=== PATIENT | male | born 1955 | race Caucasian/White ===

== ENCOUNTER 2020-11-17 07:32 | Outpatient (CLI) | payer OTHER, SELFPAY ==
--- NOTE | 2020-11-17 07:40 | USCV_ITS ---
Endy Federico Age: 65 Gender: M : 1955 Exam Date: 11/17/2020 07:54 Ordering Phys: Gustavo Castellon DO Technologist: Sultana Valenzuela Exam Location: [facility] [place] Indication: YEARLY F/UP HISTORY: Diameter (cm) AP x Transverse x Length Velocity (cm/s) Waveform Prox Aorta: 2.64 x 2.77 x 2.62 28.40 Mid Aorta: 2.40 x 2.67 x 2.02 31.20 Distal Aorta: 1.99 x 2.23 x 1.83 29.80 Right Iliac Prox: 0.76 x x Left Iliac Prox: 0.65 x x Stent Prox Landing x x Aneurysmal Sac Max x x Lt Lat Sac Dim Rt Lat Sac Dim Stent Dist Landing x x Right Iliac Stent x x Left Iliac Stent x x Right Renal Art Left Renal Art FINDINGS: Normal abdominal aortic dimensions. The proximal common iliac artery was difficult to visualize CONCLUSIONS Normal abdominal aortic dimensions. Proximal common iliac arteries where difficult to visualize. Possibly of normal caliber Technically somewhat difficult study No similar previous studies are available for comparison Dr Anne Orantes MD [facility] (Electronically Signed) Final Date: 18 November 2020 19:13 S
== END 2020-11-17 07:33 | disposition home or self-care (01) ==
LOC: US 07:33
PROVIDERS: PCP Emergency Medicine Emergency Medical Services; Visit Provider Emergency Medicine Emergency Medical Services
DX: Z01.89 Encounter for other specified special examinations (principal)
CPT/HCPCS: 93978

== ENCOUNTER 2022-02-09 13:03 | Outpatient (CLI) | payer OTHER, SELFPAY ==
--- NOTE | 2022-02-09 13:23 | US_ITS ---
WS: [id number] RENAL ULTRASOUND HISTORY: Uncontrolled hypertension. COMPARISON: None available. TECHNIQUE: 2-D and color Doppler imaging of the kidney submitted. Right kidney: 10.4 cm x 5.3 cm x 5.8 cm. Normal echogenicity. No hydronephrosis. Exophytic cyst from the mid kidney measures 2.6 x 2.2 x 2.3 c m. No solid mass. No cortical thinning. Left kidney: 12.0 cm x 4.9 cm x 6.1 cm. Normal echogenicity with no hydronephrosis or mass. Aorta: Mild atherosclerotic disease. Urinary Bladder: Minimally distended urinary bladder. No free fluid in the pelvis. US/US renal BI* [id number] IMPRESSION: 1. No cortical thinning or atrophy of either kidney. 2. No hydronephrosis. 3. Exophytic 2.6 cm cyst RIGHT kidney.
== END 2022-02-09 13:04 | disposition home or self-care (01) ==
LOC: RAD 13:03
PROVIDERS: PCP Emergency Medicine Emergency Medical Services; Visit Provider Emergency Medicine Emergency Medical Services
DX: I10 Essential (primary) hypertension (principal); Q61.01 Congenital single renal cyst
CPT/HCPCS: 76770

== ENCOUNTER 2022-04-11 11:11 | Outpatient (CLI) | payer OTHER, SELFPAY ==
--- NOTE | 2022-04-11 11:21 | USCV_ITS ---
EndyJesus Manuel melgary Age: 66 Gender: M : 1955 Exam Date: 04/11/2022 11:56 Ordering Phys: Gustavo Castellon DO Technologist: Srini Hanson Exam Location: [facility] [place]_ Indication: hypertension Aortic Velocity @ SMA (cm/s) 59 RIGHT KIDNEY LEFT KIDNEY Velocity (cm/s) Velocity (cm/s) Sys/Beyrs Sys/Byers Resistive Index Resistive Index 100.6 / 36.7 0.64 Proximal Renal Artery 104.1 / 35.5 0.66 47.9 / 18.7 0.61 Mid Renal Artery 70.1 / 29.9 0.57 59.0 / 19.4 0.67 Distal Renal Artery 72.4 / 27.6 0.62 36.8 / 12.3 0.67 Hilar 37.3 / 15.3 0.59 25.2 / 11.4 0.55 Upper Pole 14.0 / 5.1 0.64 33.4 / 9.9 0.70 Mid Pole 21.5 / 6.7 0.69 29.2 / 10.9 0.63 Lower Pole 24.1 / 10.3 0.57 1.70 Renal Aortic Ratio 1.76 Accleration Index (cm/sec2) 198.00 Hilar 288.00 161.00 Upper Pole 131.00 187.00 Mid Pole 129.00 243.00 Lower Pole 130.00 108.1 Kidney Length (mm) 110.2 FINDINGS No comparison. No evidence of abdominal aortic aneurysm. There is no evidence of hemodynamically significant right renal artery stenosis. There is no evidence of hemodynamically significant left renal artery stenosis. Right mid renal cyst, 2.3 cm. Normal size kidneys. CONCLUSIONS No sonographic evidence of hemodynamically significant renal artery stenosis bilaterally. Dr. Glenna Gomes DO (Electronically Signed) Final Date: 11 April 2022 13:48 S
== END 2022-04-11 11:12 | disposition home or self-care (01) ==
PROVIDERS: PCP Emergency Medicine Emergency Medical Services; Visit Provider Emergency Medicine Emergency Medical Services
DX: I10 Essential (primary) hypertension (principal)
CPT/HCPCS: 93975

== ENCOUNTER 2023-12-15 07:28 | Outpatient (CLI) | payer OTHER, SELFPAY ==
--- NOTE | 2023-12-15 07:40 | USCV_ITS ---
Federico Schumacher Age: 68 Gender: M : 1955 Exam Date: 12/15/2023 08:05 Ordering Phys: Gustavo Castellon DO Technologist: GABY [place] [facility] [place]: AAA HISTORY: Diameter (cm) AP x Transverse x Length Velocity (cm/s) Waveform Prox Aorta: 2.10 x 2.30 x 47.70 Mid Aorta: 2.00 x 2.10 x 68.10 Distal Aorta: 1.70 x 2.00 x 53.40 Right Iliac Prox: 1.18 x 1.61 x 121.70 Left Iliac Prox: 0.92 x 1.40 x 80.00 Stent Prox Landing x x Aneurysmal Sac Max x x Lt Lat Sac Dim Rt Lat Sac Dim Stent Dist Landing x x Right Iliac Stent x x Left Iliac Stent x x Right Renal Art Left Renal Art FINDINGS: CONCLUSIONS No evidence of abdominal aortic or bilateral iliac aneurysm. Mild arteriovascular disease within the abdominal aorta. Juventino Zapata MD (Electronically Signed) Final Date: 15 Dec 2023 10:38 S
== END 2023-12-15 07:29 | disposition home or self-care (01) ==
LOC: RAD 07:28
PROVIDERS: PCP Emergency Medicine Emergency Medical Services; Visit Provider Emergency Medicine Emergency Medical Services
DX: Z01.89 Encounter for other specified special examinations (principal)
CPT/HCPCS: 93978

== ENCOUNTER 2024-03-06 12:48 | Inpatient (IN) | payer OTHER, SELFPAY ==
[2024-03-06] VITALS (67 sets, daily range): BP systolic 137–195; BP diastolic 97–139; PULSE 76–104; RESP 12–27; TEMP 36.5–36.7; O2SAT 90–98; BMI 35.5; BMI 34.2
--- NOTE | 2024-03-06 12:58 | ECG_ITS ---
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 Measurements Intervals [place] Rate: 97 P: 61 NC: 172 QRS: 7 QRSD: 95 T: 74 QT: 359 QTc: 458 Interpretive Statements SINUS RHYTHM POSSIBLE LEFT ATRIAL ENLARGEMENT [-0.1mV P-WAVE IN V1/V2] ANTEROSEPTAL MYOCARDIAL INFARCTION , OF INDETERMINATE AGE [40+ ms Q WAVE IN V1-V4] No previous ECG available for comparison Electronically Signed On 03-06-2024 16:11:57 CDT by Kedar Hwang M.D. [email or web address].[email or web address]/[id number] f
--- NOTE | 2024-03-06 13:01 | XR_ITS ---
WS: [id number] XR chest 1V portable [id number] REASON FOR EXAM: Shortness of breath FINDINGS: No previous examination for comparison. Moderate tortuosity and ectasia of the thoracic aorta. Moderate cardiomegaly. Opacification in the lower left hemithorax which appears to be a combination of pleural effusion and airspace consolidation/atelectasis. In the right lower lung field there are reticular interstitial opacities, groundglass opacities, and horizontal linear opacities compatible with MT B lines. XR/XR chest 1V portable [id number] IMPRESSION: The changes in the right chest are compatible with congestive heart failure. The findings in the left lower chest may be related to congestive heart failure with pleural effusion and compressive atelectasis of the left lower lung.
--- NOTE | 2024-03-06 13:03 | ED_ITS ---
HPI - SOB/Dyspnea 2 General: Chief Complaint: Shortness of Breath/Dyspnea Stated Complaint: SOB Time Seen by Provider: 03/06/24 12:58 History of Present Illness: HPI Narrative: 68-year-old man with a history of hypert ension and asthma who presents to the emergency room with shortness of breath. This been worsening for about a month. [facility]. He is not on oxygen at home but oxygen saturations are little bit low on presentation so placed on 2 L nasal cannula. No chest pain. No altered mental status. No focal motor deficits. No abdominal pain. He has not noticed any lower extremity swelling. He has had some mild cough. Review of Systems 2 Narrative: Constitutional symptoms: Negative except as documented in HPI. Skin symptoms: Negative except as documented in HPI. Eye symptoms: Negative except as documented in HPI. ENMT symptoms: Negative except as documented in HPI. Respiratory symptoms: Negative except as documented in HPI. Cardiovascular symptoms: Negative except as documented in HPI. Gastrointestinal symptoms: Negative except as documented in HPI. Genitourinary symptoms: Negative except as documented in HPI. Musculoskeletal symptoms: Negative except as documented in HPI. Neurologic symptoms: Negative except as documented in HPI. Psychiatric symptoms: Negative except as documented in HPI. Endocrine symptoms: Negative except as documented in HPI. Physical Exam 2 Narrative: EXAM NARRATIVE: General: Alert, no acute distress. Skin: Warm, dry. Head: Normocephalic, atraumatic. Neck: Supple, trachea midline. Eye: Extraocular movements are intact. Ears, nose, mouth and throat: Oral mucosa moist. Cardiovascular: Regular rate and rhythm, Normal peripheral perfusion. Respiratory: some expiratory wheeze, mild increased wob, breath sounds are equal, Symmetrical chest wall expansion. Gastrointestinal: Soft, Nontender, Non distended, Normal bowel sounds. Musculoskeletal: Normal ROM, no deformity. Neurological: Alert and oriented to person, place, time, and situation, No focal neurological deficit observed. Psychiatric: Cooperative, appropriate mood & affect. Course 2 Vital Signs: Vital signs: Vital Signs Temperature 98.0 F 03/06/24 12:56 Pulse Rate 82 03/06/24 15:40 Respiratory Rate 20 H 03/06/24 15:40 Blood Pressure 160/105 03/06/24 15:40 Pulse Oximetry 97 03/06/24 15:40 Oxygen Delivery Me thod Nasal Cannula 03/06/24 14:00 Oxygen Flow Rate 2 03/06/24 14:00 MDM - SOB/Dyspnea Medical Decision Making Differential diagnosis for patient with shortness of breath includes but is not limited to and based on the above HPI, review of systems and physical exam: Pneumonia. Bronchitis. Asthma or COPD with acute exacerbation. Acute coronary syndrome / TN. Pulmonary embolism. Anxiety. Congestive heart failure. Viral infections including influenza and Covid-19. Atrial fibrillation. Anxiety. Pleural effusion. Pneumothorax. Workup: Lab work, chest X-ray and EKG ordered to evaluate, rule in and rule out above pathologies EKG: Time 1258. Rate 97. Normal sinus rhythm, No ST-T changes, no ectopy, normal ID & QRS intervals, This was reviewed and interpreted by myself the ER physician at 1301 Repeat EKG: Time 1500. Rate 89. Normal sinus rhythm, No ST-T changes, no ectopy, normal ID & QRS intervals, This was reviewed and interpreted by myself the ER physician at 1505. No changes from previous Chest x-ray: Radiology read as compatible with heart failure. And pleural effusions. Possible compressive atelectasis. Given these findings, accelerated hypertension and elevated proBNP I did give IV Lasix Lab Review: Laboratory results were reviewed and interpreted by myself the emergency room physician. No leukocytosis. No anemia. No renal failure. BUN and creatinine are 21 and 0.8. D-dimer was elevated so a CTA was ordered. proBNP is also elevated around 5000. I reviewed the patient's medical record. Reexamination: Patient is still requiring 2 L nasal cannula. Blood pressure has improved some. Heart rate has come down from presentation. He has no altered mental status. No focal motor deficits. I discussed findings with him and his family member. Assessment and plan: Pulmonary embolism Accelerated hypertension Hypoxemia Possible congestive heart failure Lung infiltrates of unknown origin -First dose of Eliquis here in the emergency room. 80 mg IV Lasix were given as well. -Unclear etiology of the infiltrates in his lung. This will need further evaluation. -I discussed the patient with the hospitalist on-call who is admitting the patient. - Discussed findings and plan with patient. Answered any questions. - All laboratory values were reviewed and interpreted personally by myself, the ER physician - All imaging was reviewed and interpreted personally by myself, the ER physician. - Evaluation and treatment of this problem were appropriate in the emergency setting -I spent a total of >35 minutes of critical care time managing the patient, independent of any other practitioner. -The time involved in the performance of separately reportable procedures was not counted towards critical care time. Lab Data 03/06/24 13:07 03/06/24 13:07 Labs/Radiology: Radiology Impressions Chest X-Ray 03/06/24 13:01 IMPRESSION: The changes in the right chest are compatible with congestive heart failure. The findings in the left lower chest may be related to congestive heart failure with pleural effusion and compressive atelectasis of the left lower lung. Chest CTA 03/06/24 14:39 IMPRESSION: 1. Subsegmental LEFT lower lobe pulmonary emboli. 2. No central pulmonary emboli. 3. Small bilateral pleural effusions. 4. Bilateral pulmonary nodules and areas of groundglass attenuation. Some of the nodules are surrounded by groundglass attenuation. Differential includes metastatic disease, septic emboli and fungal infection. 5. Indeterminate mediastinal and hilar lymph nodes. The largest lymph node at the RIGHT hilum is 13 mm. 6. Marked enlargement of the LEFT heart chambers. Laboratory Results WBC 8.15 10^3/uL (3.29-11.43) 03/06/24 13:07 RBC 5.31 10^6/uL (3.85-5.65) 03/06/24 13:07 Hgb 15.50 g/dL (11.27-16.99) 03/06/24 13:07 Hct 48.7 % (37-53) 03/06/24 13:07 MCV 91.7 fl (82-101) 03/06/24 13:07 MCH 29.2 pg (27-33) 03/06/24 13:07 MCHC 31.8 g/dL (30-55) 03/06/24 13:07 RDW 12.8 % (12.1-15.1) 03/06/24 13:07 Plt Count 180 10^3/cmm (157-399) 03/06/24 13:07 MPV 13.2 fL (7.4-10.4) H 03/06/24 13:07 Neut % (Auto) 63.4 % 03/06/24 13:07 Lymph % (Auto) 21.6 % 03/06/24 13:07 [place] % (Auto) 6.5 % 03/06/24 13:07 Eos % (Auto) 7.2 % 03/06/24 13:07 Baso % (Auto) 1.1 % 03/06/24 13:07 Neut # (Auto) 5.16 10^3/uL (1.8-7.7) 03/06/24 13:07 Lymph # (Auto) 1.8 10^3/uL (0.8-4.8) 03/06/24 13:07 [place] # (Auto) 0.5 10^3/uL (0.2-0.9) 03/06/24 13:07 Eos # (Auto) 0.6 10^3/uL (0.0-0.8) 03/06/24 13:07 Baso # (Auto) 0.1 10^3/uL (0.0-0.1) 03/06/24 13:07 Nucleated RBC % (auto) 0 % 03/06/24 13:07 Nucleated RBCs # 0.0 /100WBC 03/06/24 13:07 D-Dimer 2.36 ug/mLFEU (0-0.59) H 03/06/24 13:07 Specimen Type Arterial 03/06/24 13:03 Sample Site Radial, left 03/06/24 13:03 ABG pH 7.39 (7.35-7.45) 03/06/24 13:03 ABG pCO2 45.2 mmHg (35-45) H 03/06/24 13:03 ABG pO2 74.9 mmHg (80.0-100.0) L 03/06/24 13:03 ABG PO2/FiO2 Ratio 267 03/06/24 13:03 ABG HCO3 27.2 mmol/L (22-26) H 03/06/24 13:03 ABG O2 Saturation 95.3 03/06/24 13:03 ABG Base Excess 1.6 mmol/L (-2.0-2.0) 03/06/24 13:03 Elmer Test Pos 03/06/24 13:03 A-a O2 Gradient 8.9 mmHg (5-10) 03/06/24 13:03 Hematocrit 46.4 % (42-52) 03/06/24 13:03 Hgb O2 Saturation 93.9 % (95-100) L 03/06/24 13:03 Carboxyhemoglobin 1.4 %THgb (0.4-20.1) 03/06/24 13:03 Methemoglobin 0.1 % (0.4-1.5) L 03/06/24 13:03 Total Hemoglobin 15.1 g/dL (14-18) 03/06/24 13:03 Sodium 142.0 mmol/L (131-143) 03/06/24 13:03 Potassium 4.0 mmol/L (3.5-5.0) 03/06/24 13:03 Glucose 107.0 mg/dL (70-115) 03/06/24 13:03 Ionized Calcium 1.2 mmol/L (1.1-1.4) 03/06/24 13:03 O2 Delivery Device Nc 03/06/24 13:03 O2 Liters/Min 2.0 % 03/06/24 13:03 FiO2 28.0 % 03/06/24 13:03 Chemical Engineering Teacher ID Cak 03/06/24 13:03 Sodium 144 mmol/L (136-145) 03/06/24 13:07 Potassium 4.0 mmol/L (3.5-5.1) 03/06/24 13:07 Chloride 105 mmol/L (98-107) 03/06/24 13:07 Carbon Dioxide 26 mmol/L (22-29) 03/06/24 13:07 Anion Gap 17.0 (5-19) 03/06/24 13:07 BUN 21 mg/dL (8-23) 03/06/24 13:07 Creatinine 0.8 mg/dL (0.7-1.2) 03/06/24 13:07 GFR Calculation 95.6 mL/min (90-130) 03/06/24 13:07 Glucose 112 mg/dL (65-115) 03/06/24 13:07 Calculated Osmolality 302 mOsm/kg (285-295) H 03/06/24 13:07 Lactic Acid 1.9 mmol/L (0.5-2.2) 03/06/24 13:07 Calcium 9.0 mg/dL (8.5-10.5) 03/06/24 13:07 Total Bilirubin 1.6 mg/dL (0.15-1.2) H 03/06/24 13:07 AST 19 U/L (0-40) 03/06/24 13:07 ALT 22 U/L (0-41) 03/06/24 13:07 Alkaline Phosphatase 71 U/L (40-130) 03/06/24 13:07 Troponin T Baseline 10 ng/L (0-15) 03/06/24 13:07 Troponin T 120 Minute 10.29 ng/L (0-15) 03/06/24 14:45 Delta Troponin T 0.29 ABS# (0-10) 03/06/24 14:45 C-Reactive Protein 3.2 mg/L (0.0-4.9) 03/06/24 13:07 NT-Pro-B Natriuret Pep 5876 pg/mL (0-125) H 03/06/24 13:07 Total Protein 7.2 g/dL (6.6-8.7) 03/06/24 13:07 Albumin 4.4 g/dL (3.5-5.2) 03/06/24 13:07 Globulin 2.8 g/dL (1.3-4.6) 03/06/24 13:07 All radiology interpretation(s) finalized by discharge Discharge Plan Discharge Patient Disposition: Admitted As Inpatient Clinical Impression: Pulmonary embolism, Hypoxemia Condition: Stable Coding Level of Care Code ED Stock Handler for Lalito Whitman
[2024-03-06 13:15] LABS: ABG PCO2 45.2 mmHg (35-45); ABG PH Result 7.39 (7.35-7.45); Alveolar-Arterial Oxygen Gradi 8.9 mmHg (5-10); Arterial Blood Gas Hematocrit 46.4 % (42-52); Base Excess ABG 1.6 mmol/L (-2.0-2.0); Blood Gas Allen Test Pos; Blood Gas Operator Identificat CAK; Blood Gas Sample Site Radial, left; Blood Gas Sample Type Arterial; Carboxyhemoglobin 1.4 %THgb (0.4-20.1); HCO3 ABG 27.2 mmol/L (22-26); HGB O2 Sat 93.9 % (95-100); Ionized Calcium Level - ABG 1.2 mmol/L (1.1-1.4); Methemoglobin 0.1 % (0.4-1.5); Oxygen Device NC; Oxygen Saturation ABG 95.3; PO2 ABG 74.9 mmHg (80.0-100.0); PO2 FiO2 Ratio Arterial Blood 267; Total Hemoglobin 15.1 g/dL (14-18)
--- NOTE | 2024-03-06 13:32 | PC.PHAR ---
[facility] IS [facility]
[2024-03-06] MEDS: albuterol 2.5 mg/3 mL Neb INHALATION (13:33)
[2024-03-06] MEDS: ipratropium-albuterol 3 mL Neb INHALATION (13:33)
[2024-03-06 13:51] LABS: Basophils # 0.1 10^3/uL (0.0-0.1); Basophils % 1.1 %; Eosinophils # 0.6 10^3/uL (0.0-0.8); Eosinophils % 7.2 %; Hematocrit 48.7 % (37-53); Lymphocytes # 1.8 10^3/uL (0.8-4.8); Lymphocytes % 21.6 %; Mean Corpuscular HGB Conc 31.8 g/dL (30-55); Mean Corpuscular Hemoglobin 29.2 pg (27-33); Mean Corpuscular Volume 91.7 fl (82-101); Mean Platelet Volume 13.2 fL (7.4-10.4); Monocytes # 0.5 10^3/uL (0.2-0.9); Monocytes % 6.5 %; Neutrophils # 5.16 10^3/uL (1.8-7.7); Neutrophils % 63.4 %; Nucleated Red Blood Cells % 0 %; Platelet Count 180 10^3/cmm (157-399); Red Blood Count 5.31 10^6/uL (3.85-5.65); Red Cell Distribution Width 12.8 % (12.1-15.1); White Blood Count 8.15 10^3/uL (3.29-11.43)
[2024-03-06 13:56] LABS: Slide Review Slide Review Perform
[2024-03-06 14:14] LABS: D Dimer 2.36 ug/mLFEU (0-0.59)
[2024-03-06 14:19] LABS: Lactic Sepsis W/Reflex 1.9 mmol/L (0.5-2.2)
[2024-03-06 14:20] LABS: Troponin(5th) Baseline 10 ng/L (0-15)
[2024-03-06 14:25] LABS: Alanine Aminotransferase 22 U/L (0-41); Albumin Level 4.4 g/dL (3.5-5.2); Alkaline Phosphatase 71 U/L (40-130); Aspartate Amino Transferase 19 U/L (0-40); Blood Urea Nitrogen 21 mg/dL (8-23); C Reactive Protein 3.2 mg/L (0.0-4.9); Carbon Dioxide 26 mmol/L (22-29); Chloride 105 mmol/L (98-107); Creatinine Clr Calc Pharmacy 114.3533; Globulin 2.8 g/dL (1.3-4.6); Glomerular Filtration Rate 95.6 mL/min (90-130); Glucose 112 mg/dL (65-115); NT Pro B Type Natriuretic Pept 5876 pg/mL (0-125); Osmolality Calculated 302 mOsm/kg (285-295); Sodium 144 mmol/L (136-145); Total Bilirubin 1.6 mg/dL (0.15-1.2); Total Protein 7.2 g/dL (6.6-8.7)
--- NOTE | 2024-03-06 14:39 | CT_ITS ---
WS: [id number] CT CHEST ANGIOGRAPHY WITH REFORMATS HISTORY: hypoxemia, tachycardia TECHNIQUE: Contiguous axial images are obtained through the chest during arterial injection of intrav enous contrast. Images are reconstructed to evaluate the pulmonary arteries. MIP imaging also reviewe d. All CT scans at [facility] use at least one of these dose optimization techniques: automat ed exposure control; mA and/or kV adjustment per patient size (includes targeted exams where dose is matched to clinical indication); or iterative reconstruction. CONTRAST: Omnipaque 350; 100 mL IV. DLP: 487.09 mGy.cm COMPARISON: None available. Good opacification of the pulmonary arteries. Centrally there is no pulmonary embolism. Within the se gmental and subsegmental branches of the LEFT lower lobe the opacification of the arteries becomes le ss robust. There does appear to be a few small filling defects very distally. No additional emboli id entified. Normal sized thoracic aorta with atherosclerosis. No RIGHT heart strain. There is moderate LEFT heart enlargement. Small bilateral pleural effusions. Hazy attenuation throughout both lungs. There are additional bilat eral pulmonary nodules and areas of groundglass attenuation. Nodules and areas of groundglass attenua tion are bilateral. The largest solid nodule measures 9 mm in the LEFT lower lobe. There is mild grou ndglass attenuation surrounding some of these nodules. Mildly prominent lymph nodes. Largest lymph node RIGHT hilum 1.3 cm. Tricuspid regurgitation into the hepatic veins. Mild thoracic spondylosis. CT/CT angio chest PE protcl [id number] IMPRESSION: 1. Subsegmental LEFT lower lobe pulmonary emboli. 2. No central pulmonary emboli. 3. Small bilateral pleural effusions. 4. Bilateral pulmonary nodules and areas of groundglass attenuation. Some of t he nodules are surrounded by groundglass attenuation. Differential includes met astatic disease, septic emboli and fungal infection. 5. Indeterminate mediastinal and hilar lymph nodes. The largest lymph node at the RIGHT hilum is 13 mm. 6. Marked enlargement of the LEFT heart chambers.
[2024-03-06] MEDS: iohexol 350 mg/mL 500 mL Btl (per mL) IV (14:52)
--- NOTE | 2024-03-06 15:02 | ECG_ITS ---
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 Measurements Intervals [place] Rate: 89 P: 59 OR: 160 QRS: 6 QRSD: 105 T: 81 QT: 403 QTc: 491 Interpretive Statements SINUS RHYTHM POSSIBLE ANTERIOR MYOCARDIAL INFARCTION , OF INDETERMINATE AGE [30 ms Q WAVE IN V3/V4, OR R < 0.2 mV IN V4] Compared to ECG 03/06/2024 12:58:21 No significant changes Electronically Signed On 03-06-2024 16:12:44 CDT by Kedar Hwang M.D. [email or web address] [email or web address].[employer]/store/OM/[id number]
[2024-03-06 15:06] LABS: Troponin 5 2HR 10.29 ng/L (0-15); Troponin 5 2HR Delta 0.29 ABS# (0-10)
[2024-03-06] MEDS: FUROsemide 10 mg/mL SDV 10mL 80 MG IVP (15:20)
--- NOTE | 2024-03-06 16:03 | P.HP_ITS ---
Providers/Chief Complaint 2 Primary Care Provider: Veronica Bynum MD Chief Complaint: SOB History of Present Illness Federico Schumacher is a 68 year old male who presented from the [facility] for shortness of breath and hypoxia. Patient is stating that he has history of diabetes, hypertension, 2 heart attacks in the past 20 years ago but never had a stent or bypass. Does not use oxygen at baseline, lives with his niece. He has been experiencing orthopnea PND shortness of breath for last 1 month. He has not noticed any chest pain fever nausea vomiting or diarrhea. He has been noticing weight gain and lower extremity swelling. In the ER he has been diagnosed with acute onset PE, CHF and hypertensive emergency. He has been given Lasix, high BNP consistent with congestive heart failure. He is requiring 2 L of oxygen Patient is DNR/DNI Patient chews tobacco, no significant past surgical history other than knee surgery Review of Systems 2 Eyes: Denies: change in vision ENMT: Denies: throat pain Card: Denies: chest pain Resp: Reports: dyspnea GI: Denies: abdominal pain : Denies: flank pain Medications/Allergies Home Medications Medication Instructions Recorded Confirmed Last Taken Type aspirin 81 mg tablet,delayed 81 mg PO DAILY 03/06/24 03/06/24 03/06/24 History release cholecalciferol (vitamin D3) 50 50 mcg PO DAILY 03/06/24 03/06/24 03/06/24 History mcg (2,000 unit) tablet (Vitamin D3) metoprolol succinate 100 mg 50 mg PO DAILY 03/06/24 03/06/24 03/06/24 History tablet,extended release 24 hr potassium citrate 99 mg capsule 99 mg PO DAILY 03/06/24 03/06/24 03/06/24 History Allergies Allergy/AdvReac Type Severity Reaction Status Date / Time pravastatin Allergy Unknown Unknown Verified 03/06/24 13:34 Penicillins Allergy Unknown Verified 03/06/24 13:01 PFSH Acute 2 PFSH: Medical History Myocardial infarction Diabetes Surgical History H/O knee surgery Vitals/I&O/Wt Last Vital Signs Temp 98.0 F 03/06/24 12:56 Pulse 82 03/06/24 15:40 Resp 20 H 03/06/24 15:40 BP 160/105 03/06/24 15:40 Pulse Ox 97 03/06/24 15:40 O2 Del Method Nasal Cannula 03/06/24 14:00 O2 Flow Rate 2 03/06/24 14:00 Weight last 48 hrs Weight 118.841 kg Physical Exam 2 Narrative: Awake and alert Currently on 2 L Active crackles Lower extremity edema Active signs of heart failure GCS 15 S1, S2 Hypertensive Present Carpi Nonfocal neuroexam Data 03/06/24 13:07 03/06/24 13:07 A&P Assessment and plan (1) Pulmonary embolism: (2) Hypoxemia: (3) New onset of congestive heart failure: (4) Hypertensive urgency: Plan New onset CHF Requested echo Start Lasix Patient notes a history of myocardial infarction 20 years ago no history of stent or CABG Acute PE Check respiratory panel Rule out COVID Start therapeutic Lovenox Hypertensive urgency will use IV hydralazine on as needed basis I will add lisinopril along Lasix Also add isosorbide mononitrate Acute hypoxia related to CHF Groundglass opacity pulmonary nodule Anticipate improvement with diuresis This is related to CHF DNR/DNI discussed with the patient in the ER Cardiac diet Patient is also diabetic will use insulin sliding scale Attestations 2 Medical Necessity Statement*: More than 2 midnights anticipated Diagnoses Pulmonary embolism I26.99 Hypoxemia R09.02 New onset of congestive heart failure I50.9 Hypertensive urgency I16.0
[2024-03-06] MEDS: apixaban 5 mg Tablet 10 MG PO (16:15)
[2024-03-06 16:50] LABS: Procalcitonin 0.03 ng/mL (0-0.5)
[2024-03-06] MEDS: hyDRALAzine 20 mg/mL INJ 1 mL 5 MG IVP (16:53)
[2024-03-06 17:15] LABS: Estmated Average Glucose 111; Hemoglobin A1C 5.5 % (4.0-6.0)
[2024-03-06 18:25] LABS: Adenovirus Not Detected (NOT DETECT); Chlamydia Pneumoniae Not Detected (NOT DETECT); Coronavirus 229E,HKU1,NL63,OC4 Not Detected (NOT DETECT); Human Metapneumovirus Not Detected (NOT DETECT); Human Rhinovirus/Enterovirus Not Detected (NOT DETECT); Influenza A Not Detected (NOT DETECT); Influenza A H1 Not Detected (NOT DETECT); Influenza A H1-2009 Not Detected (NOT DETECT); Influenza A H3 Not Detected (NOT DETECT); Influenza B Not Detected (NOT DETECT); Mycoplasma Pneumoniae Not Detected (NOT DETECT); Parainfluenza Virus Type 1 Not Detected (NOT DETECT); Parainfluenza Virus Type 2 Not Detected (NOT DETECT); Parainfluenza Virus Type 3 Not Detected (NOT DETECT); Parainfluenza Virus Type 4 Not Detected (NOT DETECT); Respiratory Syncytial Virus A Not Detected (NOT DETECT); Respiratory Syncytial Virus B Not Detected (NOT DETECT); SARS-COV-2 Not Detected (NOT DETECT)
--- NOTE | 2024-03-06 19:02 | ECG_ITS ---
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 Measurements Intervals [place] Rate: 85 P: 52 DE: 150 QRS: 6 QRSD: 106 T: 75 QT: 395 QTc: 470 Interpretive Statements SINUS RHYTHM POSSIBLE LEFT ATRIAL ENLARGEMENT [-0.1mV P-WAVE IN V1/V2] NONSPECIFIC T-WAVE ABNORMALITY Compared to ECG 03/06/2024 15:00:55 T-wave abnormality now present Myocardial infarct finding no longer present Electronically Signed On 03-07-2024 10:00:32 CDT by Kedar Hwang M.D. [email or web address] DoodleSequoia Pharmaceuticalsmun[facility].[place]/store/OM/[id number]
[2024-03-06 19:10] LABS: Troponin 5 6HR 10.48 ng/L (0-15); Troponin 5 6HR Delta 0.48 ng/L (0-12)
--- NOTE | 2024-03-06 19:19 | USCV_ITS ---
Federico Schumacher Age: 68 Gender: M : 1955 Exam Date: 03/06/2024 21:33 Ordering Phys: Hudson Dias MD Technologist: NARDA [place] [facility] [place]: CHF, HTN, history of asthma BP: 171 / 123 HR: 81 Rhythm: Atrial fibrillation Technical Quality: Adequate MEASUREMENTS (Male / Female) Normal Values 2D ECHO LV Diastolic Diameter PLAX 5.9 cm 4.2 - 5.9 / 3.9 - 5.3 cm IVS Diastolic Thickness 1.4 cm 0.6 - 1.0 / 0.6 - 0.9 cm IVS Systolic Thickness 1.6 cm LVPW Diastolic Thickness 1.4 cm 0.6 - 1.0 / 0.6 - 0.9 cm LVPW Systolic Thickness 2.0 cm LVOT Diameter 2.5 cm LV Ejection Fraction 2D Teich 20.6 % LV Ejection Fraction MOD 4C 11.8 % LV Ejection Fraction MOD 2C 28.7 % LV Ejection Fraction 2C AL 29.6 % LA Diameter 6.0 cm Aorta at Sinotubular Diameter 2.9 cm IVC Diameter 0.7 cm M-MODE LA Ao Ratio MM 1.5 AV Cusp Separation MM 2.2 cm DOPPLER AV Peak Velocity 140.0 cm/s LVOT Peak Velocity 61.0 cm/s AV Area Cont Eq vti 2.5 cm squared AV Area Cont Eq pk 2.1 cm squared MV Peak Velocity 128.0 cm/s MV Area PHT 4.4 cm squared Mitral E to A Ratio 366.0 TR Peak Velocity 265.0 cm/s TR Peak Gradient 28.1 mmHg TV Peak E Velocity 47.0 cm/s Right Atrial Pressure 3.0 mmHg Pulmonary Artery Systolic Pressu 31.1 mmHg PV Peak Velocity 85.0 cm/s FINDINGS Left Ventricle Left ventricle is dilated. LV systolic function is severely reduced with EF of 15-20%. Severe global hypokinesis. Right Ventricle Normal in size and function Right Atrium Normal in size. Likely interatrial shunting. Left Atrium Severely dilated Mitral Valve Mitral valve is thickened. Mild to moderate mitral regurgitation. Aortic Valve Aortic valve is thickened. No significant stenosis or regurgitation. Tricuspid Valve Mild tricuspid regurgitation. Pulmonary artery systolic pressure is normal. Pulmonic Valve Not well visualized Pericardium Pleural effusion is seen. Aorta Normal in size IVC Grossly normal CONCLUSIONS Left ventricle is dilated. LV systolic function is severely reduced with EF of 15 to 20%. Possible interatrial shunting seen. Severely dilated left atrium. Mild to moderate mitral regurgitation. Mild tricuspid regurgitation. Pleural effusion is seen. No comparison studies are available. Kedar Hwang MD (Electronically Signed) Final Date: 07 March 2024 09:55 S
[2024-03-06 19:59] LABS: Glucose Point of Care 92 mg/dL (70-110)
[2024-03-06] MEDS: cefTRIAXone 1,000 mg SDV 1000 MG IVP (20:11)
[2024-03-06] MEDS: FUROsemide 10 mg/mL SDV 10mL 40 MG IVP (20:11)
[2024-03-06] MEDS: doxycycline 100 mg Tablet PO (20:11)
[2024-03-06 20:37] LABS: Thyroid Stimulating Hormone 3.67 uIU/mL (0.27-4.20); Vitamin B12 435 pg/mL (232-1245)
[2024-03-07] VITALS (8 sets, daily range): BP systolic 141–169; BP diastolic 74–110; PULSE 56–93; RESP 15–19; TEMP 36.4–37; O2SAT 94–98
[2024-03-07] MEDS: hyDRALAzine 20 mg/mL INJ 1 mL 5 MG IVP (01:42)
[2024-03-07] MEDS: enoxaparin 120 mg/0.8 mL Syringe SUBCUT ×2 (03:07→17:05)
[2024-03-07] MEDS: FUROsemide 10 mg/mL SDV 10mL 40 MG IVP ×2 (05:57→19:28)
[2024-03-07 06:34] LABS: Glucose Point of Care 119 mg/dL (70-110)
[2024-03-07 06:39] LABS: Basophils # 0.1 10^3/uL (0.0-0.1); Basophils % 0.7 %; Eosinophils # 0.7 10^3/uL (0.0-0.8); Eosinophils % 5.8 %; Lymphocytes % 8.8 %; Mean Corpuscular HGB Conc 32.6 g/dL (30-55); Mean Corpuscular Hemoglobin 29.5 pg (27-33); Mean Corpuscular Volume 90.6 fl (82-101); Mean Platelet Volume 12.7 fL (7.4-10.4); Monocytes # 0.9 10^3/uL (0.2-0.9); Monocytes % 7.4 %; Neutrophils # 9.02 10^3/uL (1.8-7.7); Neutrophils % 76.8 %; Nucleated Red Blood Cells % 0 %; Platelet Count 162 10^3/cmm (157-399); Red Blood Count 5.08 10^6/uL (3.85-5.65); Red Cell Distribution Width 12.7 % (12.1-15.1); White Blood Count 11.74 10^3/uL (3.29-11.43)
[2024-03-07 07:01] LABS: Anion Gap 15.6 (5-19); Blood Urea Nitrogen 18 mg/dL (8-23); C Reactive Protein 7.4 mg/L (0.0-4.9); Carbon Dioxide 28 mmol/L (22-29); Chloride 101 mmol/L (98-107); Glomerular Filtration Rate 95.6 mL/min (90-130); Glucose 122 mg/dL (65-115); Magnesium 1.9 mg/dL (1.7-2.3); Osmolality Calculated 295 mOsm/kg (285-295); Phosphorus 3.3 mg/dL (2.5-4.5); Potassium 3.6 mmol/L (3.5-5.1); Sodium 141 mmol/L (136-145)
--- NOTE | 2024-03-07 08:12 | USCV_ITS ---
Federico Schumacher Age: 68 Gender: M : 1955 Exam Date: 03/07/2024 10:11 Ordering Phys: Hudson Dias MD Technologist: GABY [place] [facility] [place]: LE SWELLING HISTORY: Lower extremity swelling. PROCEDURES: Venous duplex imaging was performed in bilateral lower extremities. The following venous structures were evaluated: common femoral vein, profunda vein, proximal portion of the greater saphenous vein, superficial femoral vein, and the popliteal vein. In addition, the posterior tibial and peroneal trunk were evaluated. Serial compression, augmentation maneuvers, and spectral Doppler flow evaluation were performed. . FINDINGS: No DVT seen, limited quality exam. CONCLUSIONS No DVT bilateral lower extremities. Poor quality exam. It would be difficult to exclude DVT on this exam. The veins and color doppler evaluation is very limited. Dr. Glenna Gomes DO (Electronically Signed) Final Date: 07 March 2024 10:57 S
--- NOTE | 2024-03-07 09:15 | P.PN_ITS ---
Subjective 2 Subjective: Patient is endorsing feeling better Adequate diuresis Echo report is pending Respiratory panel is negative TSH normal B12 400 Patient is currently on 2 L nasal cannula No active chest pain Vitals/I&O/Wt Last Vital Signs Temp 98.2 F 03/07/24 08:00 Pulse 93 03/07/24 08:00 Resp 18 03/07/24 08:00 BP 141/86 03/07/24 08:00 Pulse Ox 95 03/07/24 08:00 O2 Del Method Nasal Cannula 03/07/24 08:00 O2 Flow Rate 2.5 03/07/24 07:32 03/06/24 03/07/24 03/07/24 22:59 06:59 14:59 Intake Total 120 / 120 240 / 240 Output Total 1800 / 1800 600 / 2400 1300 / 1300 Balance -1800 / -1800 -480 / -2280 -1060 / -1060 Weight last 48 hrs Weight 114.759 kg Weight 114.305 kg Weight 118.841 kg Physical Exam 2 Narrative: Patient ate his breakfast Low extremity swelling still present Foul-smelling wound Patient is pleasant cooperative No acute chest pain Currently 2 L No orthopnea PND No significant crackles noted on auscultation S1, S2 Urinary Catheter Management: Engel: Cath Placed During This Visit: yes Reason for Continuing Indwelling Catheter: Other Urinary Catheter Date of Insertion: 03/06/24 Urinary Catheter Time of Insertion: 20:29 Data 03/07/24 06:22 03/07/24 06:22 A&P Assessment and plan (1) Hypertensive urgency: (2) New onset of congestive heart failure: (3) Pulmonary embolism: (4) Hypoxemia: Plan New onset CHF Echo report is pending Adequate diuresis Continue on diuresis IV Acute PE patient will need Eliquis at the time of discharge Currently on therapeutic Lovenox Lower extremity swelling will request venous Doppler Hypertensive urgency added lisinopril along with Lasix and hydralazine will need to optimize medications before discharge Plan to discharge him by tomorrow if echo showed preserved ejection fraction, Acute hypoxia related to CHF will need home O2 eval before discharge Cardiac diet Attestations 2 Medical Necessity Statement*: Plan to discharge him by tomorrow Diagnoses Hypertensive urgency I16.0 New onset of congestive heart failure I50.9 Pulmonary embolism I26.99 Hypoxemia R09.02
[2024-03-07] MEDS: sennosides-docusate Tablet 1 TAB PO (09:18)
[2024-03-07] MEDS: doxycycline 100 mg Tablet PO ×2 (09:18→17:05)
--- NOTE | 2024-03-07 09:38 | PC.CHAP ---
Pastoral Care Encounter/Spiritual Assessment Type of Contact [] Declined motor assembler visit [] Patient/Family/Request visit [] Outpatient visit [] Follow-up visit [] Physician referral [] Code/Alert [x] Routine visit [] Staff referral [] Actively dying [] Patient sleeping [] Family support [] [] Out of room [] Palliative care [] [] Receiving care in room [] Pre-surgical visit [] Trauma [] Long length of stay [] ICU visit [] Other: Relational/Emotional Strength [x] Patient feels connected with others/family/visitors/staff [] Distress [] Loneliness/isolation [] Abandonment Spirituality of Patient [x] Person of Vicki [] Attends Uatsdin of their Vicki [x] Believes in Prayer [] Reads Bible or Jain materials [] There are Spiritual issues to be addressed [employer] Administrator Interventions [x] Prayer [x] Active listening [] Non-anxious presence [x] Spiritual/emotional support [] Crisis/trauma care [] Spiritual counseling [] Bereavement support [] Provided bereavement packet [] Provided Bible/devotional materials [] Provided toy/stuffed animal, coloring book to patient or family member [] Provided Communion [] Anointing/[place] [] Salvation [x] Completed spiritual assessment [] Other: Impact on Illness or Injury [] Angry [] Fearful [] Anxious [] Often cries [] Exhaustion [] Unable to work [] Unable to attend christian [] Unable to walk/stand [] Unable to read [] Unable to drive [] Unable to eat/drink [] Unable to sleep [] Unable to be with family [] Patient intubated [] Other: Summary Time spent with patient 5 min Pastoral Care Encounter/Spiritual Assessment Type of Contact [] Declined motor assembler visit [] Patient/Family/Request visit [] Outpatient visit [] Follow-up visit [] Physician referral [] Code/Alert [] Routine visit [] Staff referral [] Actively dying [] Patient sleeping [] Family support [] [] Out of room [] Palliative care [] [] Receiving care in room [] Pre-surgical visit [] Trauma [] Long length of stay [] ICU visit [] Other: Relational/Emotional Strength [] Patient feels connected with others/family/visitors/staff [] Distress [] Loneliness/isolation [] Abandonment Spirituality of Patient [] Person of Vicki [] Attends Uatsdin of their Vicki [] Believes in Prayer [] Reads Bible or Jain materials [] There are Spiritual issues to be addressed [employer] Administrator Interventions [] Prayer [] Active listening [] Non-anxious presence [] Spiritual/emotional support [] Crisis/trauma care [] Spiritual counseling [] Bereavement support [] Provided bereavement packet [] Provided Bible/devotional materials [] Provided toy/stuffed animal, coloring book to patient or family member [] Provided Communion [] Anointing/[place] [] Salvation [] Completed spiritual assessment [] Other: Impact on Illness or Injury [] Angry [] Fearful [] Anxious [] Often cries [] Exhaustion [] Unable to work [] Unable to attend christian [] Unable to walk/stand [] Unable to read [] Unable to drive [] Unable to eat/drink [] Unable to sleep [] Unable to be with family [] Patient intubated [] Other: Summary Time spent with patient
[2024-03-07 11:23] LABS: Glucose Point of Care 98 mg/dL (70-110)
[2024-03-07 17:30] LABS: Glucose Point of Care 156 mg/dL (70-110)
[2024-03-07] MEDS: insulin lispro 100 unit/1 mL SUBCUT (17:46)
[2024-03-07 20:52] LABS: Glucose Point of Care 95 mg/dL (70-110)
[2024-03-07] MEDS: cefTRIAXone 1,000 mg SDV 1000 MG IVP (21:22)
[2024-03-08] MEDS: enoxaparin 120 mg/0.8 mL Syringe SUBCUT (03:35)
[2024-03-08 04:00] VITALS: BP 162/82; PULSE 73; RESP 16; TEMP 36.7; O2SAT 94
[2024-03-08 04:47] LABS: Basophils # 0.1 10^3/uL (0.0-0.1); Eosinophils % 8.9 %; Hematocrit 43.1 % (37-53); Lymphocytes # 2.2 10^3/uL (0.8-4.8); Lymphocytes % 19.5 %; Mean Corpuscular HGB Conc 32.3 g/dL (30-55); Mean Corpuscular Hemoglobin 29.2 pg (27-33); Mean Corpuscular Volume 90.5 fl (82-101); Mean Platelet Volume 12.7 fL (7.4-10.4); Monocytes % 8.9 %; Neutrophils # 6.95 10^3/uL (1.8-7.7); Neutrophils % 61.3 %; Nucleated Red Blood Cells % 0 %; Platelet Count 158 10^3/cmm (157-399); Red Blood Count 4.76 10^6/uL (3.85-5.65); Red Cell Distribution Width 12.7 % (12.1-15.1); White Blood Count 11.33 10^3/uL (3.29-11.43)
[2024-03-08 05:06] LABS: Anion Gap 15.3 (5-19); Blood Urea Nitrogen 17 mg/dL (8-23); Calcium 8.8 mg/dL (8.5-10.5); Carbon Dioxide 29 mmol/L (22-29); Chloride 99 mmol/L (98-107); Glomerular Filtration Rate 111.5 mL/min (90-130); Glucose 97 mg/dL (65-115); Osmolality Calculated 291 mOsm/kg (285-295); Potassium 3.3 mmol/L (3.5-5.1); Sodium 140 mmol/L (136-145)
[2024-03-08] MEDS: FUROsemide 10 mg/mL SDV 10mL 40 MG IVP (06:25)
[2024-03-08 06:26] LABS: Glucose Point of Care 90 mg/dL (70-110)
[2024-03-08 07:29] VITALS: BP 150/97; PULSE 92; RESP 20; TEMP 36.3; O2SAT 95
[2024-03-08 07:53] VITALS: PULSE 51; RESP 18; O2SAT 94
--- NOTE | 2024-03-08 09:09 | PC.SOCIAL ---
IMM Updated Updated pt on IMM. No questions voiced. Provided pt a copy. Initialed, dated, & timed a copy & placed in chart.
[2024-03-08] MEDS: lisinopril 20 mg Tablet PO (09:12)
[2024-03-08] MEDS: doxycycline 100 mg Tablet PO (09:12)
[2024-03-08] MEDS: potassium chloride ER 20 mEq Tablet 40 MEQ PO (09:29)
[2024-03-08 09:41] VITALS: O2SAT 93; O2SAT 95
--- NOTE | 2024-03-08 10:18 | PM.DCS ---
Discharge Providers Date of Admission: 03/06/24 18:35 Date of Discharge: March 08, 2024 Attending Provider at Admission: Hudson Dias MD Attending Provider at Discharge: Hudson Dias MD Primary Care Provider: Veronica Bynum MD Diagnoses at Discharge Discharge Diagnosis (1) Hypertensive urgency: Status: Acute (2) New onset of congestive heart failure: Status: Acute (3) Pulmonary embolism: Status: Acute (4) Hypoxemia: Status: Acute Reason for Visit Reason for Visit: SOB Hospital Course Hospital Course 68-year-old male who present to the hospital with chief complaint of shortness of breath orthopnea and PND which has been going on for a month, he did not experience any chest pain, stating that he had 2 heart attacks 20 years ago but no stents or CABG, he was diagnosed with hypertensive urgency, troponins were flat, echo was requested which showed EF 15%, patient was diuresed aggressively for acute onset CHF with adequate diuresis, patient is still has slight hypervolemic state, we were able to wean him off oxygen 2 L up to room air at the time of discharge, his electrolytes were replenished, LifeVest has been arranged, patient will follow-up with cardiology outpatient for an elective angiogram. At the time of discharge patient will get lisinopril which may be transition to Entresto outpatient, he will get Coreg with instructions to hold if heart rate is below 60, get hydralazine along lisinopril for blood pressure, Lasix along potassium and magnesium supplementation. Patient chews tobacco. He is being discharged with stable hemodynamics. Physical Exam Narrative: Awake and alert Pleasant cooperative Lower extremity swelling improving edema 2+ S1, S2 Currently on room air Hypertensive Urinary Catheter Management: Engel: Cath Placed During This Visit: yes Reason for Continuing Indwelling Catheter: Other Urinary Catheter Date of Insertion: 03/06/24 Urinary Catheter Time of Insertion: 20:29 Discharge Data Studies Completed and Pending Completed Studies During Hospitalization Category Date Time Status CT angio chest PE protcl [id number] Stat Cat Scan 03/06/24 14:39 Completed XR chest 1V portable [id number] Stat Exams 03/06/24 13:01 [place] [id number] Routine Ultrasound 03/07/24 08:12 Completed CV. echo complete* [id number] Routine Ultrasound 03/06/24 19:19 Completed Radiology Impressions Chest X-Ray 03/06/24 13:01 IMPRESSION: The changes in the right chest are compatible with congestive heart failure. The findings in the left lower chest may be related to congestive heart failure with pleural effusion and compressive atelectasis of the left lower lung. Chest CTA 03/06/24 14:39 IMPRESSION: 1. Subsegmental LEFT lower lobe pulmonary emboli. 2. No central pulmonary emboli. 3. Small bilateral pleural effusions. 4. Bilateral pulmonary nodules and areas of groundglass attenuation. Some of the nodules are surrounded by groundglass attenuation. Differential includes metastatic disease, septic emboli and fungal infection. 5. Indeterminate mediastinal and hilar lymph nodes. The largest lymph node at the RIGHT hilum is 13 mm. 6. Marked enlargement of the LEFT heart chambers. Laboratory Results WBC 11.33 10^3/uL (3.29-11.43) 03/08/24 04:37 RBC 4.76 10^6/uL (3.85-5.65) 03/08/24 04:37 Hgb 13.90 g/dL (11.27-16.99) 03/08/24 04:37 Hct 43.1 % (37-53) 03/08/24 04:37 MCV 90.5 fl (82-101) 03/08/24 04:37 MCH 29.2 pg (27-33) 03/08/24 04:37 MCHC 32.3 g/dL (30-55) 03/08/24 04:37 RDW 12.7 % (12.1-15.1) 03/08/24 04:37 Plt Count 158 10^3/cmm (157-399) 03/08/24 04:37 MPV 12.7 fL (7.4-10.4) H 03/08/24 04:37 Neut % (Auto) 61.3 % 03/08/24 04:37 Lymph % (Auto) 19.5 % 03/08/24 04:37 [place] % (Auto) 8.9 % 03/08/24 04:37 Eos % (Auto) 8.9 % 03/08/24 04:37 Baso % (Auto) 1.0 % 03/08/24 04:37 Neut # (Auto) 6.95 10^3/uL (1.8-7.7) 03/08/24 04:37 Lymph # (Auto) 2.2 10^3/uL (0.8-4.8) 03/08/24 04:37 [place] # (Auto) 1.0 10^3/uL (0.2-0.9) H 03/08/24 04:37 Eos # (Auto) 1.0 10^3/uL (0.0-0.8) H 03/08/24 04:37 Baso # (Auto) 0.1 10^3/uL (0.0-0.1) 03/08/24 04:37 Nucleated RBC % (auto) 0 % 03/08/24 04:37 Nucleated RBCs # 0.0 /100WBC 03/08/24 04:37 D-Dimer 2.36 ug/mLFEU (0-0.59) H 03/06/24 13:07 Specimen Type Arterial 03/06/24 13:03 Sample Site Radial, left 03/06/24 13:03 ABG pH 7.39 (7.35-7.45) 03/06/24 13:03 ABG pCO2 45.2 mmHg (35-45) H 03/06/24 13:03 ABG pO2 74.9 mmHg (80.0-100.0) L 03/06/24 13:03 ABG PO2/FiO2 Ratio 267 03/06/24 13:03 ABG HCO3 27.2 mmol/L (22-26) H 03/06/24 13:03 ABG O2 Saturation 95.3 03/06/24 13:03 ABG Base Excess 1.6 mmol/L (-2.0-2.0) 03/06/24 13:03 Elmer Test Pos 03/06/24 13:03 A-a O2 Gradient 8.9 mmHg (5-10) 03/06/24 13:03 Hematocrit 46.4 % (42-52) 03/06/24 13:03 Hgb O2 Saturation 93.9 % (95-100) L 03/06/24 13:03 Carboxyhemoglobin 1.4 %THgb (0.4-20.1) 03/06/24 13:03 Methemoglobin 0.1 % (0.4-1.5) L 03/06/24 13:03 Total Hemoglobin 15.1 g/dL (14-18) 03/06/24 13:03 Sodium 142.0 mmol/L (131-143) 03/06/24 13:03 Potassium 4.0 mmol/L (3.5-5.0) 03/06/24 13:03 Glucose 107.0 mg/dL (70-115) 03/06/24 13:03 Ionized Calcium 1.2 mmol/L (1.1-1.4) 03/06/24 13:03 O2 Delivery Device Nc 03/06/24 13:03 O2 Liters/Min 2.0 % 03/06/24 13:03 FiO2 28.0 % 03/06/24 13:03 Fish Hatchery Superintendent ID Cak 03/06/24 13:03 Sodium 140 mmol/L (136-145) 03/08/24 04:37 Potassium 3.3 mmol/L (3.5-5.1) L 03/08/24 04:37 Chloride 99 mmol/L (98-107) 03/08/24 04:37 Carbon Dioxide 29 mmol/L (22-29) 03/08/24 04:37 Anion Gap 15.3 (5-19) 03/08/24 04:37 BUN 17 mg/dL (8-23) 03/08/24 04:37 Creatinine 0.7 mg/dL (0.7-1.2) 03/08/24 04:37 GFR Calculation 111.5 mL/min (90-130) 03/08/24 04:37 Glucose 97 mg/dL (65-115) 03/08/24 04:37 POC Glucose 90 mg/dL (70-110) 03/08/24 06:19 Estimat Average Glucose 111 03/06/24 13:07 Hemoglobin A1c 5.5 % (4.0-6.0) 03/06/24 13:07 Calculated Osmolality 291 mOsm/kg (285-295) 03/08/24 04:37 Lactic Acid 1.9 mmol/L (0.5-2.2) 03/06/24 13:07 Calcium 8.8 mg/dL (8.5-10.5) 03/08/24 04:37 Phosphorus 3.3 mg/dL (2.5-4.5) 03/07/24 06:22 Magnesium 1.9 mg/dL (1.7-2.3) 03/07/24 06:22 Total Bilirubin 1.6 mg/dL (0.15-1.2) H 03/06/24 13:07 AST 19 U/L (0-40) 03/06/24 13:07 ALT 22 U/L (0-41) 03/06/24 13:07 Alkaline Phosphatase 71 U/L (40-130) 03/06/24 13:07 Troponin T Baseline 10 ng/L (0-15) 03/06/24 13:07 Troponin T 120 Minute 10.29 ng/L (0-15) 03/06/24 14:45 Delta Troponin T 0.29 ABS# (0-10) 03/06/24 14:45 Troponin T Hi Sens 6Hr 10.48 ng/L (0-15) 03/06/24 18:46 Troponin T Hi Sens 6Hr Delta 0.48 ng/L (0-12) 03/06/24 18:46 C-Reactive Protein 7.4 mg/L (0.0-4.9) H 03/07/24 06:22 NT-Pro-B Natriuret Pep 5876 pg/mL (0-125) H 03/06/24 13:07 Total Protein 7.2 g/dL (6.6-8.7) 03/06/24 13:07 Albumin 4.4 g/dL (3.5-5.2) 03/06/24 13:07 Globulin 2.8 g/dL (1.3-4.6) 03/06/24 13:07 Vitamin B12 435 pg/mL (232-1245) 03/06/24 18:46 Procalcitonin 0.03 ng/mL (0-0.5) 03/06/24 13:07 TSH 3.67 uIU/mL (0.27-4.20) 03/06/24 18:46 Adenovirus (PCR) Not detected (NOT DETECT) 03/06/24 16:26 C. pneumoniae DNA (PCR) Not detected (NOT DETECT) 03/06/24 16:26 Coronavirus 229E (PCR) Not detected (NOT DETECT) 03/06/24 16:26 Human Metapneumovir PCR Not detected (NOT DETECT) 03/06/24 16:26 Influenza A (H1) PCR Not detected (NOT DETECT) 03/06/24 16:26 Influ A (H1/09) PCR Not detected (NOT DETECT) 03/06/24 16:26 Influenza A (H3) PCR Not detected (NOT DETECT) 03/06/24 16:26 Influenza Type A (PCR) Not detected (NOT DETECT) 03/06/24 16:26 Influenza Type B (PCR) Not detected (NOT DETECT) 03/06/24 16:26 M. pneumoniae (PCR) Not detected (NOT DETECT) 03/06/24 16:26 Parainfluenza 1 (PCR) Not detected (NOT DETECT) 03/06/24 16:26 Parainfluenza 2 (PCR) Not detected (NOT DETECT) 03/06/24 16:26 Parainfluenza 3 (PCR) Not detected (NOT DETECT) 03/06/24 16:26 Parainfluenza 4 (PCR) Not detected (NOT DETECT) 03/06/24 16:26 RSV Type A (PCR) Not detected (NOT DETECT) 03/06/24 16:26 RSV Type B (PCR) Not detected (NOT DETECT) 03/06/24 16:26 Entero/Rhino (PCR) Not detected (NOT DETECT) 03/06/24 16:26 SARS-CoV-2 (PCR) Not detected (NOT DETECT) 03/06/24 16:26 Vitals Last Vital Signs Temp 97.4 F L 03/08/24 07:29 Pulse 51 L 03/08/24 07:53 Resp 18 03/08/24 07:53 BP 150/97 03/08/24 07:29 Pulse Ox 95 03/08/24 09:41 O2 Del Method Nasal Cannula 03/08/24 07:53 O2 Flow Rate 1 03/08/24 08:00 Discharge Plan Discharge Patient Disposition: Home Condition: Stable Prescriptions: New doxycycline monohydrate 100 mg Tablet 100 mg PO BID Qty: 6 0RF Eliquis 5 mg tablet 5 mg PO BID Qty: 120 4RF Rx Instructions: 10 mg twice a day for 7 days then take 5 mg twice a day potassium chloride 10 mEq tablet extended release 10 meq PO DAILY Qty: 60 2RF Rx Instructions: only with lasix albuterol sulfate 90 mcg/actuation HFA aerosol inhaler 2 inh inhalation Q8H PRN (Reason: shortness of breath or wheezing) Qty: 6.7 3RF magnesium 200 mg tablet 200 mg PO DAILY Qty: 30 4RF lisinopril 20 mg Tablet 20 mg PO DAILY Qty: 30 4RF carvedilol [Coreg] 3.125 mg tablet 3.125 mg PO BID Qty: 60 4RF Rx Instructions: must administer with a meal/food furosemide [Lasix] 40 mg tablet 40 mg PO DAILY Qty: 60 4RF hydralazine 25 mg tablet 25 mg PO BID Qty: 60 4RF Continued Vitamin D3 50 mcg (2,000 unit) Tablet 50 mcg PO DAILY aspirin 81 mg Tablet,Delayed Release (Dr/Ec) 81 mg PO DAILY Qty: 60 0RF Discontinued metoprolol succinate 100 mg Tablet Extended Release 24 Hr 50 mg PO DAILY potassium citrate 99 mg Capsule 99 mg PO DAILY Discharge Orders: Discharge Order (Routine); Ordered 03/08/24 Ordered By: Hudson Dias Referrals: Veronica Bynum MD [Primary Care Provider] - 2 weeks Kedar Hwang M.D [Physician] - 1 week Patient Instructions: Opioid Safety Activity Restrictions/Additional Instructions: Hold your Coreg if heart rate below 60, Keep your blood pressure below 130/90 mmHg that is why you will take lisinopril and hydralazine If blood pressure is already low below 110/80 mmhg with use of diuretic Lasix then do not take lisinopril and hydralazine Please follow-up with cardiology to plan your angiogram Please do not work outside in the yard or form do not drive tractor or car until cleared by cardiology you will be using a LifeVest he will be considered high risk for concerning cardiac arrest and ventricular arrhythmias Discharge Attestations Time Spent in Discharge Care*: greater than 30 min Quality Metrics Clinical Quality Measures [ No reported AMI, CVA or VTE this stay] Coding Level of Care Code Acute Code for Chg Fwd Diagnoses Hypertensive urgency I16.0 New onset of congestive heart failure I50.9 Pulmonary embolism I26.99 Hypoxemia R09.02
--- NOTE | 2024-03-08 10:51 | P.CONIM_ITS ---
Providers/Reason For Consult 2 Consulting Physician/Specialty*: Kedar Hwang MD / Cardiology Reason for Consult*: New onset congestive heart failure Requesting Physician: Dr Dias Attending Physician: Hudson Dias MD Primary Care Provider: Veronica Bynum MD History of Present Illness History of Present Illness Federico Schumacher is a 68 year old male Medications/Allergies Home Medications Medication Instructions Recorded Confirmed Last Taken Type cholecalciferol (vitamin D3) 50 50 mcg PO DAILY 03/06/24 03/20/24 03/06/24 History mcg (2,000 unit) tablet (Vitamin D3) albuterol sulfate 90 mcg/actuation 2 inh inhalation Q8H PRN shortness 03/08/24 03/20/24 Unknown Rx aerosol inhaler of breath or wheezing #6.7 grams apixaban 5 mg tablet (Eliquis) 5 mg PO BID #120 tabs 03/08/24 03/20/24 Unknown Rx aspirin 81 mg tablet,delayed 81 mg PO DAILY #60 tabs 03/08/24 03/20/24 03/06/24 Rx release carvedilol 3.125 mg tablet (Coreg) 3.125 mg PO BID #60 tabs 03/08/24 03/20/24 Unknown Rx doxycycline monohydrate 100 mg 100 mg PO BID #6 tabs 03/08/24 03/20/24 Unknown Rx tablet furosemide 40 mg tablet (Lasix) 40 mg PO DAILY #60 tabs 03/08/24 03/20/24 Unknown Rx hydralazine 25 mg tablet 25 mg PO BID #60 tabs 03/08/24 03/20/24 Unknown Rx lisinopril 20 mg tablet 20 mg PO DAILY #30 tabs 03/08/24 03/20/24 Unknown Rx magnesium 200 mg tablet 200 mg PO DAILY #30 tabs 03/08/24 03/20/24 Unknown Rx potassium chloride 10 mEq 10 meq PO DAILY only with lasix 03/08/24 03/20/24 Unknown Rx tablet,extended release #60 tabs Allergies Allergy/AdvReac Type Severity Reaction Status Date / Time pravastatin Allergy Unknown Unknown Verified 03/20/24 14:02 Penicillins Allergy Unknown Verified 03/20/24 14:02 Current Medications Generic Name Dose Route Start Last Admin Trade Name Freq PRN Reason Stop Dose Admin Ceftriaxone Sodium 1,000 mg 03/06/24 19:19 03/07/24 21:22 Ceftriaxone 1,000 Mg Sdv IVP 1,000 mg Q24H AKIL Administration Protocol Doxycycline Monohydrate 100 mg 03/06/24 19:19 03/08/24 09:12 Doxycycline 100 Mg Tablet PO 100 mg BID AKIL Administration Protocol Enoxaparin Sodium 120 mg 03/07/24 04:00 03/08/24 03:35 Enoxaparin 120 Mg/0.8 Ml Syringe SUBCUT 120 mg Q12H AKIL Administration Furosemide 40 mg 03/06/24 19:19 03/08/24 06:25 Furosemide 10 Mg/Ml Sdv 10ml IVP 40 mg Q12H AKIL Administration Hydralazine HCl 5 mg 03/06/24 19:19 03/07/24 01:42 Hydralazine 20 Mg/Ml Inj 1 Ml IVP 5 mg Q4H PRN Administration bp>180/90 Insulin Human Lispro 0 unit 03/06/24 19:19 03/08/24 08:24 Insulin Lispro 100 Unit/1 Ml SUBCUT Not Given WM&BEDTIME AKIL Protocol Lisinopril 20 mg 03/08/24 09:00 03/08/24 09:12 Lisinopril 20 Mg Tablet PO 20 mg DAILY AKIL Administration Senna/Docusate Sodium 1 tab 03/07/24 09:00 03/08/24 09:12 Sennosides-Docusate Tablet PO Not Given DAILY AKIL PFSH Acute 2 PFSH: Medical History Ischemic cardiomyopathy Hypertensive urgency New onset of congestive heart failure Hypoxemia Pulmonary embolism Myocardial infarction Diabetes Surgical History H/O knee surgery Social History Smoking and tobacco/nicotine status: never used tobacco/nicotine Vitals/I&O/Wt Last Vital Signs Temp 97.4 F L 03/08/24 07:29 Pulse 51 L 03/08/24 07:53 Resp 18 03/08/24 07:53 BP 150/97 03/08/24 07:29 Pulse Ox 95 03/08/24 09:41 O2 Del Method Nasal Cannula 03/08/24 07:53 O2 Flow Rate 1 03/08/24 08:00 03/07/24 03/08/24 03/08/24 22:59 06:59 14:59 Intake Total 480 / 480 Output Total 900 / 2200 1100 / 3300 1000 / 1000 Balance -900 / -1600 -1100 / -2700 -520 / -520 Weight last 48 hrs Weight 258 lb 2 oz Weight 253 lb Weight 252 lb Weight 262 lb Physical Exam 2 Urinary Catheter Management: Engel: Cath Placed During This Visit: yes Reason for Continuing Indwelling Catheter: Other Urinary Catheter Date of Insertion: 03/06/24 Urinary Catheter Time of Insertion: 20:29 Data 03/08/24 04:37 03/08/24 04:37 Coding Level of Care Code Acute Code for Chg Antonette
[2024-03-08 11:51] LABS: Glucose Point of Care 113 mg/dL (70-110)
[2024-03-08 12:03] VITALS: BP 125/82; PULSE 93; RESP 18; TEMP 36.4; O2SAT 93
== END 2024-03-08 15:02 | disposition home or self-care (01) | DRG 175 ==
LOC: ER 18:33 → MEDSURG 18:35
PROVIDERS: Admitting Provider Internal Medicine; Emergency Provider Emergency Medicine; PCP Family Medicine; Visit Provider Internal Medicine
DX: I26.99 Other pulmonary embolism without acute cor pulmonale (principal); I50.21 Acute systolic (congestive) heart failure; I16.0 Hypertensive urgency; I11.0 Hypertensive heart disease with heart failure; F17.220 Nicotine dependence, chewing tobacco, uncomplicated; R09.02 Hypoxemia; E11.9 Type 2 diabetes mellitus without complications; I25.2 Old myocardial infarction; Z79.82 Long term (current) use of aspirin; Z66 Do not resuscitate
CPT/HCPCS: 36415; 36416; 36600; 51702; 71045; 71275; 80048; 80051; 80053; 82330; 82607; 82805; 82962; 83036; 83605; 83735; 83880; 84100; 84145; 84443; 84484; 85025; 85378; 86140; 87486; 87581; 87633; 93005; 93306; 93970; 94640; 94760; 96372; 96374; 96375; 99285; J0360; J0696; J1650; J1815; J1940; J7613; Q9967

== ENCOUNTER → 2024-03-20 13:53 | Outpatient (BNVA) | payer OTHER, SELFPAY | PROVIDERS: PCP Family Medicine; Visit Provider Nurse Practitioner Family | DX: I25.5 Ischemic cardiomyopathy (principal); I25.10 Atherosclerotic heart disease of native coronary artery without angina pectoris; R06.02 Shortness of breath; I08.1 Rheumatic disorders of both mitral and tricuspid valves | CPT/HCPCS: 36415; 80048; 83880; 99214 ==

== ENCOUNTER 2024-04-11 11:57 | Observation (INO) | payer OTHER, SELFPAY ==
[2024-04-11] VITALS (27 sets, daily range): BP systolic 75–122; BP diastolic 59–99; PULSE 73–145; RESP 12–28; TEMP 36.4–36.7; O2SAT 90–97; BMI 34.2; BMI 36.3
--- NOTE | 2024-04-11 07:30 | XACV_ITS ---
Exam Room: 2 Ht: 183 cm Wt: 114 kg BSA: 2.45 m2 Gender: Male : 1955 Any Known Allergies: Other Exam Priority: Routine Procedure(s): Procedure Description: Diagnostic procedure Procedure Description: Coronary Angiography Diagnostic Cath Status: Elective Diagnostic Findings * Left Main has no significant disease. * Circumflex has mild to moderate diffuse disease. * Right Coronary Artery has no significant disease. * Mid Left Anterior Descending to Distal Left Anterior Descending: severe diffuse disease. Not amenable to intervention. * Proximal Left Anterior Descending: moderate 50% stenosis, JOLENE: 3 flow. * Coronary angiography shows right dominance. Conclusions 1. Severe diffuse disease of LAD. Not amenable to intervention. Recommendations * Admit patient for afib with RVR management. * Guideline directed heart failue therapy. * Outpatient cardiology follow up in 2 weeks. Interventional RX Recommendation: medical therapy and/or counseling Diagnostic RX Recommendation: medical therapy and/or counseling Anticoagulation: Heparin Pressures Phase:Rest AO : 86 / 70 ( 75 ) @ 10:10:00 AM 77 / 68 ( 72 ) @ 10:15:00 AM Clinical Evaluation EBL: 5mL-10mL Procedural Details Pre-Procedure Time Out. Identified patient by full name and date of as verbalized by the patient/guarantor. Does the consent match the physician's order: Yes. Accurate & Complete Informed Consent: Yes. Inpatient/Outpatient History & Physical on Chart: Yes. If H&P is completed, is and addenduem needed: No; If yes, is the addendum complete: N/A. Visualize and Verify Site with Patient/Guarantor: N/A. Relevant Radiology Images available: Yes. Pre-op teaching completed and patient verbalized understanding. The risks, benefits, and alternatives of sedation and/or procedure were discussed by physician. The patient agrees to continue. Procedure started. [facility] Clinical Fraility Score: 5: Mildly Frail. 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 Chest Pain Symptom Assessment: Atypical Angina. Current diagnosis: Chest Pain. PERRLA. Strong, equal hand tourist agent bilaterally. Lungs clear x 5 lobes. IV Site on Arrival: 20 gauge in the left anticubital. IV Fluids: 0.9% NaCl at KVO. 0 mL infused prior to stores laborer. Pre Procedural Pulses: right dorsalis pedis was Absent. Pre Procedural Pulses: left dorsalis pedis was Doppled. Physician arrived. Pre Procedural Pulses: bilateral posterior tibial was Doppled. Pre Procedural Pulses: bilateral radial was 2+. Oxygen started at 2liters/min via nasal canula. right groin was prepped with chloroprep then draped in the usual sterile fashion. right radial was prepped with chloroprep then draped in the usual sterile fashion. Baseline sample Acquired. HR: 103 BPM. Current Diagnosis : Chest Pain. Physician scrubbed in. Immediate Pre-Procedure Time Out. Correct Patient: Yes; Correct Procedure: Yes; Correct Site: Yes; Correct Patient Position: Yes; Correct Supplies: Yes; Dried Flammable Prep: Yes; Blood Products Available: N/A;. Lidocaine 1% infiltrated to the right groin. Arterial access obtained. A 5 bahamian TIG catheter in over wire. Multiple views taken of left coronary artery. Catheter redirected to the RCA. Multiple views taken of right coronary artery. Catheter removed over the exchange wire. A 5 bahamian JR4 catheter in over wire. Multiple views taken of right coronary artery. Catheter removed over the exchange wire. Physician review of cine films. Vital chart was stopped. A TR Band was successful obtaining hemostatsis at the Right Radial artery insertion site. Post Procedure: Pulses reassessed and unchanged. PERRLA. Strong, equal hand tourist agent bilaterally. No VTE prophylaxis required. Medication's Wasted: Nitro = 49.8 mcg. Medication's Wasted: Other = Fentanyl 50 mcg. Medication's Wasted: Heparin = 1000 units. Medication's Wasted: Lidocaine 1% = 18 mL. Total IV fluids: 30 mL. Complications: None. Estimated blood loss: 5mL-10mL. Responsiveness - Normal response to verbal stimuli; alert and oriented, PERRLA. Airway - Unaffected, no intervention required; spontaneous ventilation. Circulation: W/N/L, pulses unchanged. Nausea/Vomiting: No. Procedure completed. Patient transferred by wheelchair to 1st floor. Access Site Site: Right Radial artery Sheath Size: 6 Fr Hemostasis Method: TR Band Hemostasis Success: Successful Procedure Medications Start: 8:53 AM Stop: 8:53 AM Medication: Versed 1 mg and Fentanyl 25 mcg Amount: 1 Route: I.V. Start: 9:08 AM Stop: 9:08 AM Medication: Nitrogylcerin Amount: 200 mcg Route: I.A. Start: 9:09 AM Stop: 9:09 AM Medication: Heparin Amount: 5000 units Route: I.V. Start: 9:11 AM Stop: 9:11 AM Medication: Versed 1 mg and Fentanyl 25 mcg Amount: 1 Route: I.V. I, the attending physician, have reviewed and verified all procedure medications. Yes, all medications given per verbal order History/Risk Factors Hypertension: Yes Dyslipidemia: No Peripheral Arterial Disease (PAD): No Myocardial Infarction (ID): No Obesity: No Renal Disease: No Tobacco Use: Never Prior Interventions PCI: No CABG: No Valve Surgery: No Report Signatures Finalized by Kedar Hwang MD on 04/25/2024 12:16 PM
[2024-04-11] MEDS: diphenhydrAMINE 50 mg Capsule PO (07:45)
[2024-04-11] MEDS: aspirin 325 mg Tablet PO (07:45)
--- NOTE | 2024-04-11 07:45 | PC.NURSE ---
Dr. Hwang Notified of patient in afib with RVR. HR 130's-150's. Pt is asymptomatic. BP 116/99. Telephone orders received to given 5mg IV Metoprolol X 1 now prior to cath and will reassess.
[2024-04-11] MEDS: metoprolol tartrate 1 mg/1 mL SDV 5 mL 5 MG IVP ×2 (07:50→08:31)
[2024-04-11 07:56] LABS: Basophils # 0.1 10^3/uL (0.0-0.1); Basophils % 0.9 %; Eosinophils # 0.6 10^3/uL (0.0-0.8); Eosinophils % 7.7 %; Hematocrit 45.9 % (37-53); Lymphocytes # 2.1 10^3/uL (0.8-4.8); Lymphocytes % 26.6 %; Mean Corpuscular HGB Conc 31.2 g/dL (30-55); Mean Corpuscular Hemoglobin 29.5 pg (27-33); Mean Corpuscular Volume 94.6 fl (82-101); Mean Platelet Volume 12.8 fL (7.4-10.4); Monocytes # 0.6 10^3/uL (0.2-0.9); Monocytes % 7.7 %; Neutrophils # 4.41 10^3/uL (1.8-7.7); Neutrophils % 56.8 %; Nucleated Red Blood Cells % 0 %; Platelet Count 146 10^3/cmm (157-399); Red Blood Count 4.85 10^6/uL (3.85-5.65); Red Cell Distribution Width 13.2 % (12.1-15.1); White Blood Count 7.77 10^3/uL (3.29-11.43)
--- NOTE | 2024-04-11 08:00 | PC.NURSE ---
Dr. Hwang at bedside consenting patient for cath procedure. Pt still remains in afib with RVR rate 120-130's. Received verbal orders to administer another one time order for 5mg Metoprolol IVP .
[2024-04-11 08:16] LABS: Anion Gap 15.2 (5-19); Blood Urea Nitrogen 24 mg/dL (8-23); Calcium 8.9 mg/dL (8.5-10.5); Carbon Dioxide 27 mmol/L (22-29); Chloride 102 mmol/L (98-107); Glomerular Filtration Rate 59.9 mL/min (90-130); Glucose 127 mg/dL (65-115); Osmolality Calculated 296 mOsm/kg (285-295); Potassium 4.2 mmol/L (3.5-5.1); Sodium 140 mmol/L (136-145)
[2024-04-11 08:43] LABS: Slide Review Slide Review Perform
--- NOTE | 2024-04-11 08:52 | W.PM.OPSUD ---
Surgery/Procedure H&P Update DATE OF PROCEDURE: April 11, 2024 DATE H&P PERFORMED: 03/20/24 H&P UPDATE INFORMATION: I have reviewed H&P completed within last 30 days, I have examined patient prior to procedure and No changes to prior documentation CHANGES TO PREVIOUS DOCUMENTATION: Patient is currently in atrial fibrillation with RVR. No prior history. With IV metoprolol heart rate has improved to 100-110 bpm range. PREOP DIAGNOSIS: LV dysfunction PRIMARY INDICATION FOR PROCEDURE: LV dysfunction PLANNED PROCEDURE: Operation Date: 04/11/24 08:30 Proposed Procedures p Cardiac Catheterization(Left) - Kedar Hwang M.D PATIENT REASSESSED PRIOR TO SEDATION, WITH NO CHANGE NOTED: Yes PHYSICAL EXAM: alert, oriented x 3 and clear to auscultation bilaterally OTHER PERTINENT EXAM FINDINGS: Irregularly irregular, tachycardic AIRWAY EVAL/ANESTHESIA PLAN: normal airway, ASA III, Local Anesthesia, Risks, benefits & alternatives of sedation and/or procedure discussed and Patient agrees to continue as planned ADDITIONAL INFORMATION: Moderate sedation
--- NOTE | 2024-04-11 09:51 | ECG_ITS ---
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1955 Requested By: Kedar Hwang Order Number: [id number] Reading MD: YING LOPEZ Measurements Intervals [place] Rate: 123 P: 0 WA: 0 QRS: 27 QRSD: 109 T: 98 QT: 325 QTc: 466 Interpretive Statements ATRIAL FIBRILLATION WITH RAPID VENTRICULAR RESPONSE INDETERMINATE AXIS PATTERN CONSISTENT WITH PULMONARY DISEASE SEPTAL MYOCARDIAL INFARCTION , PROBABLY OLD [40+ ms Q WAVE IN V1/V2] Compared to ECG 03/06/2024 19:03:23 Indeterminate axis now present Myocardial infarct finding now present Sinus rhythm no longer present T-wave abnormality no longer present Electronically Signed On 04-11-2024 11:56:23 CDT by YING LOPEZ [email or web address]
--- NOTE | 2024-04-11 09:53 | PC.NURSE ---
received from cardiac hatchery laborer via w/c at 0945.report received.pt is drowsy from sedation but oriented x 3.denies pain at present.afib on monitor.ekg obtained as ordered.right wrist with tr band on and inflated.right hand is warm to touch and with brisk capillary refill.palpable radial pulse noted distal to tr band.no hematoma noted.pt instructed in activity restrictions s/p radial artery procedure..and instructed to notify staff for any bleeding,pain,numbness,sob...or for any concerns at all.pt verb understanding of instructions.
--- NOTE | 2024-04-11 11:56 | PM.MISC ---
Miscellaneous Note Purpose of Documentation: Brief note Note: Patient presented with left heart cath as outpatient. He was in atrial fibrillation with RVR. This is a new diagnosis for him. IV metoprolol x2 was administered and heart rate improved. LHC was performed however heart rates are again over 120s. Given heart failure history, high chance of decompensation.We are admitting him. Starting amiodarone gtt. We will start anticoagulation once TR band is off and no access site bleeding Coronary angiogram showed severe diffuse disease of mid to distal LAD with no good targets and possibly infarcted territory. As patient is chest pain free, no PCI was performed. We will uptitrate guideline directed heart failure therapy Continue tele monitoring.
[2024-04-11] MEDS: amiodarone 150 MG/100 ML PREMIX 400 MG IV (12:09)
--- NOTE | 2024-04-11 15:04 | PC.NURSE ---
right tr band slowly deflated and eventually removed at 1330.no hematoma noted.right hand remains warm to touch and with brisk capillary refill.palpable radial pulse noted.site dressed with 2x2 and secured with biocclusive drsg.pt instructed in activity restrictions s/p tr band removal ...and instructed to notify staff for any sob,numbness,pain,bleeding...or for any concerns at all.pt verb understanding of instructions.
--- NOTE | 2024-04-11 15:16 | PC.NURSE ---
dr fitzpatrick notified of pt's current bp's.(on low side)...he instructed that since MAP's are consistently above 65..to continue to observe...but have nightshift call him before cv meds administered tonight.
[2024-04-11] MEDS: apixaban 5 mg Tablet PO (17:43)
[2024-04-11] MEDS: carvedilol 6.25 mg Tablet PO (17:43)
--- NOTE | 2024-04-11 18:23 | PC.NURSE ---
dr hidalgoim here to check on pt around 5:00.bp has improved.he ordered to decrease coreg to 6.25 mh bid and to hold entresto
--- NOTE | 2024-04-11 19:09 | PC.NURSE ---
converted to nsr with freq pvc's at approx 1815.dr fitzpatrick notified.no orders received
--- NOTE | 2024-04-11 20:33 | XRR_ITS ---
PROCEDURE INFORMATION: Exam: XR Chest Exam date and time: 04/11/2024 8:51 PM Age: 68 years old Clinical indication: Shortness of breath and other: Decrease BP; Additional info: Dr rodgers TECHNIQUE: Imaging protocol: Radiologic exam of the chest. Views: 1 view. COMPARISON: CT angio chest PE protcl [id number] 03/06/2024 2:49 PM FINDINGS: Lungs: Right hilar atelectasis versus infiltrate. Emphysematous changes. Pleural spaces: Unremarkable. No pleural effusion. No pneumothorax. Heart/Mediastinum: Cardiomegaly. Bones/joints: Unremarkable. XR/XR chest 1V portable [id number] IMPRESSION: 1. Cardiomegaly. 2. Right hilar atelectasis versus infiltrate. 3. Emphysematous changes.
[2024-04-11 21:24] LABS: Glucose Point of Care 150 mg/dL (70-110)
[2024-04-11 22:14] LABS: Blood Urea Nitrogen 32 mg/dL (8-23); Calcium 8.7 mg/dL (8.5-10.5); Carbon Dioxide 24 mmol/L (22-29); Chloride 103 mmol/L (98-107); Creatinine Clr Calc Pharmacy 51.4118; Glomerular Filtration Rate 37.5 mL/min (90-130); Glucose 157 mg/dL (65-115); Osmolality Calculated 296 mOsm/kg (285-295); Sodium 138 mmol/L (136-145)
[2024-04-11 22:15] LABS: Lactate (Lactic Acid level) 2.3 mmol/L (0.5-2.2)
[2024-04-12] VITALS (8 sets, daily range): BP systolic 101–121; BP diastolic 68–86; PULSE 73–83; RESP 16–23; TEMP 36.5–37; O2SAT 95
--- NOTE | 2024-04-12 03:08 | PC.NURSE ---
Patient had a near syncopal episode while on toilet. Pt was escorted back to bed Dr Hwang was notified and new orders were given.
[2024-04-12 03:58] LABS: Basophils % 0.4 %; Eosinophils % 0.4 %; Hematocrit 44.1 % (37-53); Lymphocytes # 1.1 10^3/uL (0.8-4.8); Lymphocytes % 9.9 %; Mean Corpuscular HGB Conc 31.1 g/dL (30-55); Mean Corpuscular Hemoglobin 29.4 pg (27-33); Mean Corpuscular Volume 94.6 fl (82-101); Monocytes # 0.6 10^3/uL (0.2-0.9); Monocytes % 5.4 %; Neutrophils # 9.31 10^3/uL (1.8-7.7); Neutrophils % 83.4 %; Nucleated Red Blood Cells % 0 %; Platelet Count 145 10^3/cmm (157-399); Red Blood Count 4.66 10^6/uL (3.85-5.65); Red Cell Distribution Width 13.3 % (12.1-15.1); White Blood Count 11.16 10^3/uL (3.29-11.43)
[2024-04-12 04:23] LABS: Anion Gap 18.1 (5-19); Blood Urea Nitrogen 34 mg/dL (8-23); Calcium 8.9 mg/dL (8.5-10.5); Carbon Dioxide 25 mmol/L (22-29); Chloride 103 mmol/L (98-107); Creatinine Clr Calc Pharmacy 51.4118; Glomerular Filtration Rate 37.5 mL/min (90-130); Glucose 160 mg/dL (65-115); Osmolality Calculated 303 mOsm/kg (285-295); Potassium 5.1 mmol/L (3.5-5.1); Sodium 141 mmol/L (136-145)
--- NOTE | 2024-04-12 07:21 | P.PN_ITS ---
Subjective 2 Subjective: Patient has converted back to sinus rhythm. Renal function worsened and creatinine is 1.8 today. Patient had hypotension episodes yesterday that have improved now. Vitals/I&O/Wt Last Vital Signs Temp 98.6 F 04/12/24 03:30 Pulse 79 04/12/24 03:29 Resp 22 H 04/12/24 03:29 BP 121/78 04/12/24 03:29 Pulse Ox 95 04/12/24 03:29 O2 Del Method Room Air 04/11/24 20:00 04/11/24 04/12/24 04/12/24 22:59 06:59 14:59 Intake Total 440.000 / 720.734 7682 / 1920.000 Balance 440.000 / 934.886 3936 / 1920.000 Weight last 48 hrs Weight 268 lb Weight 252 lb Physical Exam 2 Narrative: GENERAL: Patient is alert, awake and oriented x3. [] NECK: No jugular vein distension. [] HEENT: No cyanosis. No icterus. No pallor. [] HEART: Regular S1 and S2. No murmur, rub or gallop. [] LUNGS: Clear to auscultate bilaterally. [] CENTRAL NERVOUS SYSTEM: Grossly nonfocal. [] EXTREMITIES: Lower extremities with 1+ edema bilaterally Data 04/12/24 03:40 04/12/24 03:42 A&P Assessment and plan (1) New onset of congestive heart failure: (2) Pulmonary embolism: (3) Atrial fibrillation: Plan Patient was admitted to hospital post coronary angiogram yesterday as was in atrial fibrillation with RVR. No known history of that. We had started amiodarone gtt and overnight he converted back to sinus rhythm. Back on Eliquis. Patient had hypotensive episodes yesterday. Creatinine has increased. We will start gentle IV fluids. Switch amiodarone to PO. Will restart coreg at low dose as yesterday had hypotension BMP in the PM. Coronary angigoram showed severe diffuse disease of mid to distal LAD. Medically treated. If renal function improves by tomorrow, will plan on discharge. Attestations 2 Medical Necessity Statement*: Care expected to cross 2 midnights. Patient had outpatient coronary angiogram yesterday. He was in A-fib with RVR with heart rates uncontrolled. Was admitted to hospital . Now back in normal sinus rhythm. Adjusting medicines and awaiting renal function to improve. Coding Level of Care Code Acute Code for Chg Fwd Diagnoses New onset of congestive heart failure I50.9 Pulmonary embolism I26.99 Atrial fibrillation I48.91
[2024-04-12] MEDS: apixaban 5 mg Tablet PO ×2 (07:44→17:22)
[2024-04-12] MEDS: amiodarone 200 mg Tablet 400 MG PO (13:18)
[2024-04-12] MEDS: sodium chloride 0.9% 1,000 ML 50 ML IV (13:18)
[2024-04-12 18:39] LABS: Anion Gap 15.6 (5-19); Blood Urea Nitrogen 40 mg/dL (8-23); Carbon Dioxide 25 mmol/L (22-29); Chloride 96 mmol/L (98-107); Glomerular Filtration Rate 42.9 mL/min (90-130); Glucose 153 mg/dL (65-115); Osmolality Calculated 287 mOsm/kg (285-295); Potassium 4.6 mmol/L (3.5-5.1); Sodium 132 mmol/L (136-145)
[2024-04-12 18:41] LABS: Creatinine Clr Calc Pharmacy 57.8382
[2024-04-13 01:07] VITALS: BP 113/77; PULSE 79; RESP 24; O2SAT 93
[2024-04-13 04:50] VITALS: BP 149/79; RESP 18; O2SAT 94
[2024-04-13] MEDS: apixaban 5 mg Tablet PO (07:26)
[2024-04-13] MEDS: amiodarone 200 mg Tablet 400 MG PO (07:27)
[2024-04-13] MEDS: carvedilol 6.25 mg Tablet PO (09:01)
--- NOTE | 2024-04-13 09:15 | P.DS_ITS ---
Discharge Providers Date of Admission: 04/11/24 11:57 Date of Discharge: April 13, 2024 Attending Provider at Admission: Kedar Hwang M.D Attending Provider at Discharge: Kedar Hwang M.D Primary Care Provider: Veronica Bynum MD Diagnoses at Discharge Discharge Diagnosis (1) New onset of congestive heart failure: Status: Acute (2) Pulmonary embolism: Status: Acute (3) Atrial fibrillation: Status: Acute Reason for Visit Reason for Visit: I25.5 Brief History: 68-year-old man who was recently found t o have severe LV dysfunction. Plan for coronary angiogram to rule out CAD as underlying reason for cardiomyopathy. When patient came he was in atrial fibrillation with RVR. This is a new diagnosis for him. Prior to cath he was given IV metoprolol that improved heart rate Hospital Course Hospital Course Coronary angiogram demonstrated severe diffuse mid to distal LAD disease. No targets for revascularization. Medical therapy was decided. After the procedure, the patient's heart rates worsened. Given low heart function, we decided to admit patient for atrial fibrillation management. He was put on amiodarone. He converted back to sinus rhythm. Renal function worsened however became stable at time of discharge. We will repeat BMP as outpatient. we are holding entresto and will be resumed as outpatient after the assessment of renal function. Patient wanted to go home and wanted renal function monitoring as outpatient. Physical Exam Narrative: GENERAL: Patient is alert, awake and oriented x3. [] NECK: No jugular vein distension. [] HEENT: No cyanosis. No icterus. No pallor. [] HEART: Regular S1 and S2. No murmur, rub or gallop. [] LUNGS: Clear to auscultate bilaterally. [] CENTRAL NERVOUS SYSTEM: Grossly nonfocal. 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 Cardiomegaly. 2. Right hilar atelectasis versus infiltrate. 3. Emphysematous changes. Laboratory Results WBC 11.16 10^3/uL (3.29-11.43) 04/12/24 03:40 RBC 4.66 10^6/uL (3.85-5.65) 04/12/24 03:40 Hgb 13.70 g/dL (11.27-16.99) 04/12/24 03:40 Hct 44.1 % (37-53) 04/12/24 03:40 MCV 94.6 fl (82-101) 04/12/24 03:40 MCH 29.4 pg (27-33) 04/12/24 03:40 MCHC 31.1 g/dL (30-55) 04/12/24 03:40 RDW 13.3 % (12.1-15.1) 04/12/24 03:40 Plt Count 145 10^3/cmm (157-399) L 04/12/24 03:40 MPV 13.0 fL (7.4-10.4) H 04/12/24 03:40 Neut % (Auto) 83.4 % 04/12/24 03:40 Lymph % (Auto) 9.9 % 04/12/24 03:40 [place] % (Auto) 5.4 % 04/12/24 03:40 Eos % (Auto) 0.4 % 04/12/24 03:40 Baso % (Auto) 0.4 % 04/12/24 03:40 Neut # (Auto) 9.31 10^3/uL (1.8-7.7) H 04/12/24 03:40 Lymph # (Auto) 1.1 10^3/uL (0.8-4.8) 04/12/24 03:40 [place] # (Auto) 0.6 10^3/uL (0.2-0.9) 04/12/24 03:40 Eos # (Auto) 0.0 10^3/uL (0.0-0.8) 04/12/24 03:40 Baso # (Auto) 0.0 10^3/uL (0.0-0.1) 04/12/24 03:40 Nucleated RBC % (auto) 0 % 04/12/24 03:40 Nucleated RBCs # 0.0 /100WBC 04/12/24 03:40 Sodium 132 mmol/L (136-145) L 04/12/24 18:08 Potassium 4.6 mmol/L (3.5-5.1) 04/12/24 18:08 Chloride 96 mmol/L (98-107) L 04/12/24 18:08 Carbon Dioxide 25 mmol/L (22-29) 04/12/24 18:08 Anion Gap 15.6 (5-19) 04/12/24 18:08 BUN 40 mg/dL (8-23) H 04/12/24 18:08 Creatinine 1.6 mg/dL (0.7-1.2) H 04/12/24 18:08 GFR Calculation 42.9 mL/min (90-130) L 04/12/24 18:08 Glucose 153 mg/dL (65-115) H 04/12/24 18:08 POC Glucose 150 mg/dL (70-110) H 04/11/24 21:22 Calculated Osmolality 287 mOsm/kg (285-295) 04/12/24 18:08 Lactate 2.3 mmol/L (0.5-2.2) H 04/11/24 21:52 Calcium 9.0 mg/dL (8.5-10.5) 04/12/24 18:08 Vitals Last Vital Signs Temp 97.7 F 04/12/24 15:30 Pulse 79 04/13/24 01:07 Resp 18 04/13/24 04:50 BP 149/79 04/13/24 04:50 Pulse Ox 94 04/13/24 04:50 O2 Del Method Room Air 04/13/24 04:50 Discharge Plan Discharge Patient Disposition: Home Condition: Stable Prescriptions: New amiodarone 200 mg tablet 200 mg PO DAILY Qty: 90 2RF Continued Eliquis 5 mg tablet 5 mg PO BID Qty: 120 4RF Rx Instructions: 10 mg twice a day for 7 days then take 5 mg twice a day carvedilol [Coreg] 3.125 mg tablet 3.125 mg PO BID Qty: 60 4RF Rx Instructions: must administer with a meal/food furosemide [Lasix] 40 mg tablet 40 mg PO DAILY Qty: 60 4RF albuterol sulfate 90 mcg/actuation HFA aerosol inhaler 2 inh inhalation Q8H PRN (Reason: shortness of breath or wheezing) Qty: 6.7 3RF magnesium 200 mg tablet 200 mg PO DAILY Qty: 30 4RF hydralazine 25 mg tablet 25 mg PO BID Qty: 60 4RF Discontinued sacubitril-valsartan 49-51 mg tablet 1 tab PO BID Qty: 180 1RF Discharge Orders: Discharge Order (Routine); Ordered 04/13/24 Ordered By: Kedar Hwang Other Ambulatory Orders: Basic Metabolic Panel (Routine) Timeframe: 1 Week Facility: [facility] - Location: Lab - Main Lab Ordered By: Kedar Hwang Referrals: Kedar Hwang M.D [Physician] - (Please keep appointment on 04/29) Discharge Diet: Cardiac Discharge Activity: Increase activity as tolerated Patient Instructions: Amiodarone (By mouth), Heart Failure (DC), A-fib (Atrial Fibrillation) (DC), CHF Stoplight Discharge Attestations Time Spent in Discharge Care*: less than 30 min Quality Metrics Clinical Quality Measures [ No reported AMI, CVA or VTE this stay] Coding Level of Care Code Acute Code for Chg Fwd Diagnoses New onset of congestive heart failure I50.9 Pulmonary embolism I26.99 Atrial fibrillation I48.91
[2024-04-13 09:19] VITALS: BP 136/77; PULSE 40; TEMP 36.6; O2SAT 91
[2024-04-13 09:34] VITALS: BP 136/77; PULSE 40; TEMP 36.6; O2SAT 91
--- NOTE | 2024-04-13 09:38 | PC.NURSE ---
Patient discharged to home. Instruction provided regarding new medication, follow up appointment, CHF with stoplight and atrial fibrillation. Patient verbalized complete understanding. Patient taken by wheelchair to private vehicle. Niece called for transportion.
== END 2024-04-13 10:40 | disposition home or self-care (01) ==
LOC: CSU 11:58
PROVIDERS: Admitting Provider Internal Medicine; PCP Family Medicine; Visit Provider Internal Medicine
DX: I11.0 Hypertensive heart disease with heart failure (principal); I50.9 Heart failure, unspecified; I26.99 Other pulmonary embolism without acute cor pulmonale; I48.91 Unspecified atrial fibrillation; I25.5 Ischemic cardiomyopathy; I25.2 Old myocardial infarction; E11.9 Type 2 diabetes mellitus without complications; I25.10 Atherosclerotic heart disease of native coronary artery without angina pectoris
CPT/HCPCS: 36415; 36416; 71045; 80048; 82962; 83605; 85025; 93005; 93454; 96374; 99152; 99153; C1769; C1887; C1894; G0378; J0283; J1644; J2250; J3010; J3490; J7030; Q0163; Q9967

== ENCOUNTER → 2024-04-29 10:00 | Outpatient (BNVA) | payer OTHER, SELFPAY | PROVIDERS: PCP Family Medicine; Visit Provider Internal Medicine | DX: I50.9 Heart failure, unspecified (principal); I48.91 Unspecified atrial fibrillation; I25.5 Ischemic cardiomyopathy; I26.99 Other pulmonary embolism without acute cor pulmonale; N17.9 Acute kidney failure, unspecified; R07.9 Chest pain, unspecified; R06.02 Shortness of breath | CPT/HCPCS: 36415; 80048; 83880; 99214 ==

== ENCOUNTER 2024-06-23 14:12 | Emergency (ER) | payer OTHER, MEDICARE, SELFPAY ==
[2024-06-23] VITALS (8 sets, daily range): BP systolic 66–118; BP diastolic 42–51; PULSE 0–130; RESP 15–18; O2SAT 66–100
--- NOTE | 2024-06-23 14:30 | ED_ITS ---
HPI - General Adult 2 General: Chief complaint: General Medical Stated complaint: resp distress Time Seen by Provider: 06/23/24 14:18 History of Present Illness: Patient arrived via EMS secondary to a fall. EMS states patient's oxygen saturation upon arrival was in the 50s to 60% but he did have a lot of dirt and feces on his finger so they are not sure if it was a good wound. They did place him on 4 L of oxygen per route. His oxygen saturation came up to 100% and round. Patient has bilateral open ulcerating sores on his feet. Patient is covered in what appears to be feces and urine. Patient does have a LifeVest on. Upon arrival to the ER patient's O2 sats 98% on 4 L. Patient does have a history of heart failure with ejection fraction of 15 to 20% Related Data Home Medications Medication Instructions Recorded Confirmed lisinopril 20 mg tablet 20 mg PO DAILY 06/23/24 06/23/24 potassium chloride 10 mEq See Rx Instructions .Route 06/23/24 06/23/24 tablet,extended release .COMPLEX PRN Edema Previous Rx's Medication Instructions Recorded albuterol sulfate 90 mcg/actuation 2 inh inhalation Q8H PRN shortness 03/08/24 aerosol inhaler of breath or wheezing #6.7 grams apixaban 5 mg tablet (Eliquis) 5 mg PO BID #120 tabs 03/08/24 carvedilol 3.125 mg tablet (Coreg) 3.125 mg PO BID #60 tabs 03/08/24 hydralazine 25 mg tablet 25 mg PO BID #60 tabs 03/08/24 magnesium 200 mg tablet 200 mg PO DAILY #30 tabs 03/08/24 furosemide 40 mg tablet (Lasix) 40 mg PO BID #180 tabs 05/06/24 Allergies Allergy/AdvReac Type Severity Reaction Status Date / Time pravastatin Allergy Unknown Unknown Verified 04/29/24 10:08 Penicillins Allergy Unknown Verified 04/29/24 10:08 Review of Systems 2 General: Reports: 10 or more systems reviewed and unremarkable except in HPI and below PFSH ED 2 PFSH: Medical History New onset of congestive heart failure Pulmonary embolism Ischemic cardiomyopathy Hypertensive urgency Hypoxemia Myocardial infarction Diabetes Surgical History H/O knee surgery Social History Smoking and tobacco/nicotine status: current every day tobacco/nicotine user (chewing tobacco) Physical Exam 2 Const: COMMON NORMALS: no acute distress, patient oriented x3, no limitations and alert HENMT: COMMON NORMALS: normocephalic, atraumatic, hearing grossly normal bilaterally, external ears normal, Normal external nose present and moist oral mucous membranes HEAD & SCALP: normocephalic and atraumatic NOSE: Normal external nose present EXTERNAL EAR: Yes external ears normal Eye: COMMON NORMALS: Equal, round and reactive pupils present, EOMs intact bilaterally, conjunctivae normal and no scleral icterus CONJUNCTIVA: Yes conjunctivae normal PUPIL: Yes Equal, round and reactive pupils present Neck/C-Spine: COMMON NORMALS: full ROM, no lymphadenopathy, supple, no meningeal signs and no JVD Resp: COMMON NORMALS: normal respiratory effort, No retractions, No use of accessory muscles and clear to auscultation bilaterally AUSCULTATION: clear to auscultation bilaterally Cardio: COMMON NORMALS: no JVD, regular rate, regular rhythm, S1 normal heart sound present, S2 normal heart sound present and No gallops present (Cardio) RATE: regular rate RHYTHM: regular rhythm HEART SOUNDS: S1 normal heart sound present and S2 normal heart sound present GI: COMMON NORMALS: Normal to inspection, nondistended, normoactive bowel sounds present, Soft to palpation, non-tender, No hepatosplenomegaly present and no masses PALPATION: Yes Soft to palpation and Yes No hepatosplenomegaly present Extremity: OTHER: All extremities soiled with with what appears to be feces and urine, bilateral lower extremity excoriation ulceration type wounds up to proximal lower leg region. Neuro: COMMON NORMALS: patient oriented x3 SENSORIUM/ORIENTATION: Yes alert MENINGEAL SIGNS: Yes no meningeal signs Procedures Intubation Time out performed: Yes sedative: none Laryngoscope: fiber optic video scope ET Tube Size: 8 Tube Secured Depth (cm): 23 Tube Secured Location: teeth Tube Placement Confirmation: visualized tube passing through cords, equal breath sounds bilaterally and no breath sounds over epigastrium Patient Tolerated Procedure: well and no complications Course 2 Vital Signs: Vital signs: Vital Signs Pulse Rate 130 H 06/23/24 16:13 Respiratory Rate 18 06/23/24 16:03 Blood Pressure 118/48 06/23/24 14:14 Pulse Oximetry 100 06/23/24 16:03 Oxygen Delivery Me thod Nasal Cannula 06/23/24 16:03 Oxygen Flow Rate 4 06/23/24 16:03 MDM - General Adult Medical Decision Making During the patient stay in the ER we are waiting for lab work to come back. Patient just received 1 DuoNeb breathing treatment and was receiving 1 g of calcium gluconate 10 units of IV insulin then patient went unresponsive and into non-perfusing rhythm pulse was lost, CPR was started, ACLS protocol was used. Patient was intubated on first attempt, CPR was started, approximately 8 doses of epi were given, no pulse was ever obtained. We did see some sporadic electrical activity on the monitor 1 time. We did give 300 mg of amiodarone. We talked with the family who said patient was a DNR and did not want to be put on life support. We did stop compressions and extubated the patient. Patient's heart did not go into a perfusing rhythm and patient did not start breathing on his own. Time of was called at 1633. Medical Records I reviewed the patient's medical records. Lab Data I reviewed the patient's lab results. Hemoccult positive 06/23/24 14:48 06/23/24 14:48 Laboratory Results WBC 31.17 10^3/uL (3.29-11.43) H* 06/23/24 14:48 RBC 4.37 10^6/uL (3.85-5.65) 06/23/24 14:48 Hgb 12.70 g/dL (11.27-16.99) 06/23/24 14:48 Hct 38.6 % (37-53) 06/23/24 14:48 MCV 88.3 fl (82-101) 06/23/24 14:48 MCH 29.1 pg (27-33) 06/23/24 14:48 MCHC 32.9 g/dL (30-55) 06/23/24 14:48 RDW 13.0 % (12.1-15.1) 06/23/24 14:48 Plt Count 325 10^3/cmm (157-399) 06/23/24 14:48 MPV 11.3 fL (7.4-10.4) H 06/23/24 14:48 Neut % (Auto) 90.1 % 06/23/24 14:48 Lymph % (Auto) 3.1 % 06/23/24 14:48 [place] % (Auto) 3.7 % 06/23/24 14:48 Eos % (Auto) 0.1 % 06/23/24 14:48 Baso % (Auto) 0.3 % 06/23/24 14:48 Neut # (Auto) 28.11 10^3/uL (1.8-7.7) H 06/23/24 14:48 Lymph # (Auto) 1.0 10^3/uL (0.8-4.8) 06/23/24 14:48 [place] # (Auto) 1.2 10^3/uL (0.2-0.9) H 06/23/24 14:48 Eos # (Auto) 0.0 10^3/uL (0.0-0.8) 06/23/24 14:48 Baso # (Auto) 0.1 10^3/uL (0.0-0.1) 06/23/24 14:48 Nucleated RBC % (auto) 0 % 06/23/24 14:48 Nucleated RBCs # 0.0 /100WBC 06/23/24 14:48 PT 19.30 SECONDS (12.1-14.9) H 06/23/24 14:48 INR 1.57 (0.8-1.2) H 06/23/24 14:48 Sodium 119 mmol/L (136-145) L* 06/23/24 14:48 Potassium 7.1 mmol/L (3.5-5.1) H* 06/23/24 14:48 Chloride 89 mmol/L (98-107) L 06/23/24 14:48 Carbon Dioxide 13 mmol/L (22-29) L 06/23/24 14:48 Anion Gap 24.1 (5-19) H 06/23/24 14:48 BUN > 155 mg/dL (8-23) H* D 06/23/24 14:48 Creatinine 5.4 mg/dL (0.7-1.2) H 06/23/24 14:48 GFR Calculation Not Reportable 06/23/24 14:48 Glucose 135 mg/dL (65-115) H 06/23/24 14:48 Calculated Osmolality 301 mOsm/kg (285-295) H 06/23/24 14:48 Lactic Acid 1.6 mmol/L (0.5-2.2) 06/23/24 14:48 Calcium 8.0 mg/dL (8.5-10.5) L 06/23/24 14:48 Phosphorus 7.5 mg/dL (2.5-4.5) H 06/23/24 14:48 Magnesium 3.4 mg/dL (1.7-2.3) H 06/23/24 14:48 Total Bilirubin 0.4 mg/dL (0.15-1.2) 06/23/24 14:48 AST 18 U/L (0-40) 06/23/24 14:48 ALT 16 U/L (0-41) 06/23/24 14:48 Alkaline Phosphatase 75 U/L (40-130) 06/23/24 14:48 Creatine Kinase 375 U/L (39-308) H* 06/23/24 14:48 Troponin T Baseline 23 ng/L (0-15) H 06/23/24 14:48 C-Reactive Protein 117.4 mg/L (0.0-4.9) H 06/23/24 14:48 NT-Pro-B Natriuret Pep 66172 pg/mL (0-125) H 06/23/24 14:48 Total Protein 5.3 g/dL (6.6-8.7) L 06/23/24 14:48 Albumin 2.4 g/dL (3.5-5.2) L 06/23/24 14:48 Globulin 2.9 g/dL (1.3-4.6) 06/23/24 14:48 Procalcitonin 0.50 ng/mL (0-0.5) 06/23/24 14:48 All radiology interpretation(s) finalized by discharge Critical Care Time 2 Critical Care Time: Critical Care Time: Yes Total Critical Care Time: 30 Attestation: The patient was emergently evaluated this patient's presentation and case had a high probability of a clinically significant, sudden, or life-threatening deterioration of the patient's initial critical presentation or condition which required my full and direct attention, intervention and personal management. Discharge Plan Discharge Patient Disposition: Clinical Impression: Cardiopulmonary arrest, Acute hyperkalemia, Acute renal failure, Acute hyponatremia Condition: Stable Prescriptions: No Action furosemide [Lasix] 40 mg tablet 40 mg PO BID Qty: 180 3RF Eliquis 5 mg tablet 5 mg PO BID Qty: 120 4RF carvedilol [Coreg] 3.125 mg tablet 3.125 mg PO BID Qty: 60 4RF Rx Instructions: must administer with a meal/food albuterol sulfate 90 mcg/actuation HFA aerosol inhaler 2 inh inhalation Q8H PRN (Reason: shortness of breath or wheezing) Qty: 6.7 3RF magnesium 200 mg tablet 200 mg PO DAILY Qty: 30 4RF hydralazine 25 mg tablet 25 mg PO BID Qty: 60 4RF lisinopril 20 mg tablet 20 mg PO DAILY potassium chloride 10 mEq tablet extended release See Rx Instructions .ROUTE .COMPLEX PRN (Reason: Edema) Rx Instructions: TAKE 1 TABLET BY MOUTH EVERY DAY ONLY with Lasix. Referrals: Veronica Bynum MD [Primary Care Provider] - Coding Level of Care Code ED Linoleum Layer Helper for Lalito Whitman
[2024-06-23 14:59] LABS: Basophils # 0.1 10^3/uL (0.0-0.1); Basophils % 0.3 %; Eosinophils % 0.1 %; Hematocrit 38.6 % (37-53); Lymphocytes % 3.1 %; Mean Corpuscular HGB Conc 32.9 g/dL (30-55); Mean Corpuscular Hemoglobin 29.1 pg (27-33); Mean Corpuscular Volume 88.3 fl (82-101); Mean Platelet Volume 11.3 fL (7.4-10.4); Monocytes # 1.2 10^3/uL (0.2-0.9); Monocytes % 3.7 %; Neutrophils # 28.11 10^3/uL (1.8-7.7); Neutrophils % 90.1 %; Nucleated Red Blood Cells % 0 %; Platelet Count 325 10^3/cmm (157-399); Red Blood Count 4.37 10^6/uL (3.85-5.65)
[2024-06-23 15:04] LABS: White Blood Count 31.17 10^3/uL (3.29-11.43)
[2024-06-23 15:10] LABS: INR 1.57 (0.8-1.2)
--- NOTE | 2024-06-23 15:11 | PC.PHAR ---
Pt is [facility] states Carvedilol 3.125 and Entresto 24-26 were discontinued. Removed from chart.
[2024-06-23 15:15] LABS: Lactic Sepsis W/Reflex 1.6 mmol/L (0.5-2.2)
[2024-06-23 15:28] LABS: Alanine Aminotransferase 16 U/L (0-41); Albumin Level 2.4 g/dL (3.5-5.2); Alkaline Phosphatase 75 U/L (40-130); Anion Gap 24.1 (5-19); Aspartate Amino Transferase 18 U/L (0-40); C Reactive Protein 117.4 mg/L (0.0-4.9); Carbon Dioxide 13 mmol/L (22-29); Chloride 89 mmol/L (98-107); Globulin 2.9 g/dL (1.3-4.6); Glucose 135 mg/dL (65-115); Magnesium 3.4 mg/dL (1.7-2.3); NT Pro B Type Natriuretic Pept 10296 pg/mL (0-125); Total Bilirubin 0.4 mg/dL (0.15-1.2); Total Protein 5.3 g/dL (6.6-8.7)
[2024-06-23 15:32] LABS: Osmolality Calculated 301 mOsm/kg (285-295)
[2024-06-23 15:33] LABS: Creatine Phosphokinase 375 U/L (39-308)
[2024-06-23 15:34] LABS: Blood Urea Nitrogen > 155 mg/dL (8-23); Potassium 7.1 mmol/L (3.5-5.1); Sodium 119 mmol/L (136-145)
--- NOTE | 2024-06-23 15:36 | ECG_ITS ---
[facility]: 2024-[facility]23 Pat Name: Federico Schumacher Department: Room: Gender: Male Testboard Operator: : [id number] Requested By: Byron Mcmahon Order Number: [id number] Reading MD: YING LOPEZ Measurements Intervals [place] Rate: 86 P: 0 FL: 0 QRS: 93 QRSD: 169 T: 41 QT: 420 QTc: 503 Interpretive Statements ATRIAL FIBRILLATION BORDERLINE RIGHT AXIS DEVIATION [QRS AXIS > 90] INTRAVENTRICULAR CONDUCTION DELAY [130+ ms QRS DURATION] Compared to ECG 04/11/2024 09:56:51 Intraventricular conduction delay now present Indeterminate axis no longer present Myocardial infarct finding no longer present Electronically Signed On 06-24-2024 19:23:42 CREPE BOX TENDER by YING LOPEZ [email or web address]
[2024-06-23] MEDS: ipratropium-albuterol 3 mL Neb INHALATION (16:01)
[2024-06-23 16:02] LABS: Troponin(5th) Baseline 23 ng/L (0-15)
[2024-06-23 16:06] LABS: Phosphorus 7.5 mg/dL (2.5-4.5)
[2024-06-23] MEDS: calcium gluconate 0.1 gm/mL 10% SDV 10mL 1 GM IVP (16:12)
[2024-06-23] MEDS: sodium chloride 0.9% 1,000 ML 999 ML IV (16:13)
[2024-06-23] MEDS: insulin regular-human 100 units/1 mL 10 UNIT IVP (16:14)
[2024-06-23] MEDS: dextrose 10% 250 ML 1000 ML IV (16:25)
--- NOTE | 2024-06-23 17:08 | PC.NURSE ---
Addendum entered by Joslyn Montgomery RN 06/23/24 18:19: PATIENT PRESENTED TO ED COVERED HEAD TO TOE WITH FECES AND URINE. PATIENT UNABLE TO STAND DUE TO FOOT/LEG WOUNDS. AFTER INSERTING IV AND OBTAINING LAB RESULTS, ENSURING PATIENTS BP WAS STABLE ENOUGH TO TRANSPORT TO [facility] ROOM. FAMILY OF PATIENT STATED LIFE VEST HAD TO COME OFF AND COULD NOT BE WET AND INSISTED THEY TAKE VEST OFF. THIS NURSE AND CHARGE NURSE EXPLAINED THAT THE VEST COULD STAY ON WHILE PATIENT WAS IN [facility] AND WE WOULD CLEANSE FROM WAIST DOWN. FAMILY INSISTED AGAIN TO TAKE IT OFF AND MANUALLY TOOK OFF THE VEST THEMSELVES. NOTIFIED PROVIDER OF LIFE VEST BEING OFF BY FAMILY MEMBER FOR DECON. THIS NURSE, CHARGE NURSE, AND MEDICAL CLAIMS PROCESSOR TOOK PATIENT TO DECON ROOM. WHILE IN DECON ROOM, CRITICAL LAB RESULTS WERE REPORTED TO NURSE BY CHARGE NURSE AND DIRECTLY REPORTED TO PROVIDER BY CHARGE NURSE. PROVIDER STATED HE WOULD PUT ORDERS IN. PATIENT WAS IN [facility] FOR APPROX A TOTAL OF 30 MINS, RETURNED BACK TO PATIENT ROOM IMMEDIATELY WITH PLANS TO PLACE 2ND IV, ADMINISTER MEDICATIONS, AND APPLY LIFE VEST BACK ON PATIENT, AND PRODUCTION SUPERVISOR. ESTABLISHED 2ND IV FOR CRITICAL MEDICATIONS, PRODUCTION SUPERVISOR, AND DICKSON ESTABLISHED. OBTAINED MEDICATIONS IMMEDIATELY AFTER EXITING THE ROOM AND RETURNED. WAS IN THE PROCESS OF PUSHING CALCIUM AND INSULIN FOR HIGH POTASSIUM. RESPIRATORY IN ROOM AT THE TIME, PATIENT WAS ALERT AND SPEAKING TO RESPIRATORY AND NURSE. AT APPROX 1615 PATIENT BECAME UNRESPONSIVE, POSTURED, AND WAS PULSELESS. CHARGE NURSE AND PROVIDER PRESENTED TO ROOM, CPR INITIATED AT 1615. SEE KITCHEN HELP HANDYMAN'S NOTE FOR CPR RECORD. Original Note: PATIENT PRESENTED TO ED COVERED HEAD TO TOE WITH FECES AND URINE. PATIENT UNABLE TO STAND DUE TO FOOT/LEG WOUNDS. AFTER INSERTING IV AND OBTAINING LAB RESULTS, ENSURING PATIENTS BP WAS STABLE ENOUGH TO TRANSPORT TO [facility] ROOM. FAMILY OF PATIENT STATED LIFE VEST HAD TO COME OFF AND COULD NOT BE WET AND INSISTED THEY TAKE VEST OFF. THIS NURSE AND CHARGE NURSE EXPLAINED THAT THE VEST COULD STAY ON WHILE PATIENT WAS IN [facility] AND WE WOULD CLEANSE FROM WAIST DOWN. FAMILY INSISTED AGAIN TO TAKE IT OFF AND MANUALLY TOOK OFF THE VEST THEMSELVES. NOTIFIED PROVIDER OF LIFE VEST BEING OFF BY FAMILY MEMBER FOR DECON. THIS NURSE, CHARGE NURSE, AND MEDICAL CLAIMS PROCESSOR TOOK PATIENT TO DECON ROOM. WHILE IN DECON ROOM, CRITICAL LAB RESULTS WERE REPORTED TO NURSE BY CHARGE NURSE AND DIRECTLY REPORTED TO PROVIDER BY CHARGE NURSE. PROVIDER STATED HE WOULD PUT ORDERS IN. PATIENT WAS IN [facility] FOR APPROX A TOTAL OF 30 MINS, RETURNED BACK TO PATIENT ROOM IMMEDIATELY WITH PLANS TO PLACE 2ND IV, ADMINISTER MEDICATIONS, AND APPLY LIFE VEST BACK ON PATIENT, AND PRODUCTION SUPERVISOR. ESTABLISHED 2ND IV FOR CRITICAL MEDICATIONS, PRODUCTION SUPERVISOR, AND DICKSON ESTABLISHED. OBTAINED MEDICATIONS IMMEDIATELY AFTER EXITING THE ROOM AND RETURNED. WAS IN THE PROCESS OF PUSHING CALCIUM AND INSULIN FOR HIGH POTASSIUM. RESPIRATORY IN ROOM AT THE TIME, PATIENT WAS ALERT AND SPEAKING TO RESPIRATORY AND NURSE. AT APPROX 1415 PATIENT BECAME UNRESPONSIVE, POSTURED, AND WAS PULSELESS. CHARGE NURSE AND PROVIDER PRESENTED TO ROOM, CPR INITIATED AT 1415. SEE KITCHEN HELP HANDYMAN'S NOTE FOR CPR RECORD.
--- NOTE | 2024-06-23 17:37 | PC.NURSE ---
supervisor feed house arrived at [facility] 10 at 1616. Was informed that code began at 1615. Compressions were being performed at time of arrival and pulse check was called at 1617. At 1618 epi was given and compressions were resumed. 1620 pulse check resulted no pulse and patient was given sodium bicarb. Compressions resumed at 1620. 1622 pulse check resulted in no pulse. 1622 epi was given again and compressions started. 1624 pulse check- no pulse. Compressions resumed. 1626 pulse check, no pulse and epi was given. Compressions resumed. At 1628 pulse check no pulse was found and 300 of amio was given. Compressions resumed at 1628. 1630 pulse check - no pulse found via palpitation or doppler. Another dose of epi was given at 1630 and compressions were resumed. 1632 pulse check resulted no pulse. Compressions resumed for [address] Mcmahon came in the room and announced the family states he is AND. Compressions stopped. Asystole shown on monitor at 1633. Time of , [address] Mcmahon. MTS called at 1715. [facility] reference number [id number].
== END 2024-06-23 16:33 | disposition expired ==
PROVIDERS: Emergency Provider Emergency Medicine; PCP Family Medicine
DX: I46.9 Cardiac arrest, cause unspecified (principal); E87.5 Hyperkalemia; N17.9 Acute kidney failure, unspecified; E87.1 Hypo-osmolality and hyponatremia; Z79.01 Long term (current) use of anticoagulants; Z86.711 Personal history of pulmonary embolism; I25.2 Old myocardial infarction; E11.9 Type 2 diabetes mellitus without complications; F17.220 Nicotine dependence, chewing tobacco, uncomplicated
CPT/HCPCS: 31500; 36415; 51702; 80053; 82550; 83605; 83735; 83880; 84100; 84145; 84484; 85025; 85610; 86140; 87040; 93005; 94640; 96374; 96375; 99291; J0612; J1815; J7030; J7799